=== PATIENT | male | born 1940 | race Caucasian/White ===

== ENCOUNTER → 2017-10-02 09:26 | Outpatient (POV) | payer MEDICARE, SELFPAY | PROVIDERS: PCP Internal Medicine; Visit Provider Thoracic Surgery (Cardiothoracic Vascular Surgery) | DX: Z00.00 Encounter for general adult medical examination without abnormal findings (principal) ==

== ENCOUNTER → 2017-11-17 08:54 | Outpatient (POV) | payer MEDICARE, SELFPAY | PROVIDERS: Visit Provider Internal Medicine | DX: Z00.00 Encounter for general adult medical examination without abnormal findings (principal) ==

== ENCOUNTER → 2018-01-13 13:16 | Outpatient (CLI) | payer MEDICARE, OTHER, SELFPAY ==
--- NOTE | 2018-01-13 13:27 | US_ITS ---
US thyroid HISTORY: ITS.REASON: THYROID NODULE ORDERING PHYSICIAN: Bret Whipple MD PATIENT AGE: 78 years COMPARISON: 07/10/2017 FINDINGS: The right lobe is 3.7 x 1.9 x 1.4 cm. There is heterogeneous echogenicity with decreased echogenicity along the anterior aspect of the right lobe which represent a small nodule at 1 cm probably unchanged. The left lobe measures 3.2 x 1.5 x 2 cm the upper pole there is a 1.3 x 1 cm isoechoic nodule. Probably unchanged given difference in scanning technique. IMPRESSION: Bilateral thyroid nodules probably unchanged
== END ==
PROVIDERS: PCP Internal Medicine; Visit Provider Otolaryngology
DX: E04.1 Nontoxic single thyroid nodule (principal)
CPT/HCPCS: 76536

== ENCOUNTER → 2018-02-16 10:15 | Outpatient (POV) | payer MEDICARE, SELFPAY | PROVIDERS: Family Provider Internal Medicine; PCP Internal Medicine; Visit Provider Internal Medicine | DX: Z00.00 Encounter for general adult medical examination without abnormal findings (principal) ==

== ENCOUNTER → 2018-12-13 11:53 | Outpatient (POV) | payer MEDICARE, SELFPAY | PROVIDERS: Visit Provider Internal Medicine | DX: Z00.00 Encounter for general adult medical examination without abnormal findings (principal) ==

== ENCOUNTER → 2019-06-14 11:11 | Outpatient (POV) | payer MEDICARE, SELFPAY ==
[2019-06-14 13:38] LABS: Basophils # 0.1 K/mm3 (0-0.2); Basophils % 0.4 % (0.1-2.0); Eosinophils # 0.2 K/mm3 (0.0-0.4); Hematocrit 46.5 % (42.0-52.0); Hemoglobin 14.4 g/dL (14.1-18.0); Lymphocytes # 5.6 K/mm3 (0.7-4.5); Lymphocytes % 36.8 % (10-50); Mean Corpuscular HGB Conc 30.9 g/dL (31.8-35.4); Mean Corpuscular Hemoglobin 33.3 pg (27.0-31.2); Mean Corpuscular Volume 107.8 fl (80-94); Mean Platelet Volume 7.4 fl (7.4-10.4); Monocytes # 1.2 K/mm3 (0.1-1.0); Monocytes % 7.8 % (1.7-9.3); Neutrophils # 8.1 K/mm3 (1.8-7.8); Neutrophils % 53.9 % (37.0-80.0); Platelet Count 317 K/mm3 (142-424); Red Blood Count 4.32 M/mm3 (4.60-6.20); White Blood Count 15.1 K/mm3 (4.8-10.8)
[2019-06-14 13:50] LABS: MANUAL DIFFERENTIAL MANUAL DIFFERENTIAL (MANUAL DIFF)
[2019-06-14 14:04] LABS: Alanine Aminotransferase 25 U/L (12-78); Albumin Level 3.4 gm/dL (3.4-5.0); Albumin/Globulin Ratio 1.4 (1.1-1.8); Alkaline Phosphatase 83 U/L (46-116); Anion Gap 9.9 mEq/L (5-15); Aspartate Amino Transferase 11 U/L (15-37); Bilirubin,Total 0.7 mg/dL (0.2-1.0); Blood Urea Nitrogen 11 mg/dL (7-18); Calcium 8.4 mg/dL (8.5-10.1); Carbon Dioxide 32 mmol/L (21.0-32.0); Chloride 99 mmol/L (98-107); Creatinine,Serum 0.99 mg/dL (0.70-1.30); Estimated Glomerular Filt Rate 73 ml/min (>60); GFR (African American) 88 ML/MIN (>60); Globulin 2.5 gm/dl (1.3-3.2); Glucose 75 mg/dL (74-106); Potassium 3.9 mmoL/L (3.5-5.1); Sodium 137 mmol/L (136-145); Total Protein,Serum 5.9 gm/dL (6.4-8.2)
[2019-06-14 15:08] LABS: Lymphocytes % 35 % (10-50); Monocytes % 4 % (2-9); Neutrophils % 60 % (42-76); Platelet Estimate Normal; RBC Morphology Normal; Total Cells Counted 100
[2019-06-18 04:59] LABS: Immunoglobulin E, Total 25 IU/mL (6-495)
== END ==
PROVIDERS: Visit Provider Internal Medicine
DX: J44.9 Chronic obstructive pulmonary disease, unspecified (principal)
CPT/HCPCS: 36415; 80053; 82785; 85007; 85025

== ENCOUNTER → 2019-07-20 14:54 | Outpatient (CLI) | payer MEDICARE, SELFPAY ==
--- NOTE | 2019-07-20 14:56 | MR_ITS ---
PROCEDURE: MR CERVICAL SPINE WO CON CLINICAL INDICATION: NECK PAIN Neck pain with limited range of motion COMPARISON: [facility] CT CHEST W/O CONTRAST from 07/24/2017 TECHNIQUE: Standard multiplanar multiecho sequences are performed without contrast. 3-D MIP and myelographic images are also rendered and reviewed FINDINGS: Normal alignment. Unremarkable craniocervical junction. C2-C3: Mild right-sided foraminal narrowing from uncovertebral hypertrophy. C3-C4: Moderate bilateral foraminal narrowing from uncovertebral hypertrophy with mild degenerative disc disease and 2 mm anterolisthesis of C3. C4-C5: Degenerate disc disease with uncovertebral hypertrophy with mild bilateral foraminal narrowing C5-C6: Degenerate disc disease with mild bulging disc and mild right-sided foraminal narrowing. 2-3 mm retrolisthesis of C5. C6-C7: Minimal anterolisthesis of C6 of 2-3 mm. Bony hypertrophy is present in the right facet region anteriorly. Facet ligamentum hypertrophy noted with bilateral lateral recess narrowing. C6-C7: Degenerate disc disease with mild bulging disc with 3 mm anterolisthesis of C7. Small left paracentral disc protrusion suspected at T2-T3 only imaged in the sagittal plane. No canal stenosis or disc herniation evident. IMPRESSION: Multilevel cervical spondylosis as detailed above. Please see above for detailed description at each level. No canal stenosis or extruded herniated disc Small left paracentral disc protrusion T2-T3 only imaged in the sagittal plane Dictated by: Jovanny Fischer MD 07/22/2019 11:42 Electronically signed by Jovanny Fischer MD in [place] 07/22/2019 11:42
== END ==
PROVIDERS: PCP Internal Medicine; Visit Provider Internal Medicine
DX: M54.2 Cervicalgia (principal)
CPT/HCPCS: 72141; 76376

== ENCOUNTER → 2020-03-14 13:44 | Outpatient (CLI) | payer MEDICARE, SELFPAY ==
--- NOTE | 2020-03-14 13:57 | MR_ITS ---
PROCEDURE: MR LUMBAR SPINE WO CON CLINICAL INDICATION: LUMBAR BACK PAIN LBP. Bilateral leg weakness, pain, numbness, and tingling. X6-8months. No trauma. Prior MRI 16 COMPARISON: [facility]/O MRI-L-SPINE W/O from 02/14/2016 MR CERVICAL SPINE WO CON from 07/20/2019 TECHNIQUE: Standard multiplanar multiecho sequences are performed without contrast. 3-D MIP and myelographic images are also rendered and reviewed FINDINGS: There is normal alignment. The spinal cord ends at the T12 level. L1-L2, and L2-L3 have an unremarkable appearance. L3-L4: There is mild facet hypertrophic changes causing mild bilateral lateral recess and foraminal narrowing which is slightly greater on the left and has slightly increased on the left compared to the previous exam. L4-5: There is 7 mm anterolisthesis of L4 with bulging disc along with facet and ligamentum hypertrophy. The facet and ligamentum hypertrophy is present bilaterally but is greater on the right compared to the left with severe right lateral recess narrowing. Left lateral recess narrowing is also noted. The anterolisthesis of L4 is slightly greater than when compared to the previous exam. The other findings are similar when compared to the previous exam. There is compression upon the right aspect of the thecal sac from the asymmetric facet and ligamentum hypertrophy. L5-S1: Bulging disc with bilateral facet ligamentum hypertrophy. This is greater on the left compared to the right resulting in left lateral recess and moderate to severe left-sided foraminal narrowing. This is not significantly changed. No extruded herniated disc evident. There is some transverse narrowing of the canal at L4-5 due to the facet hypertrophic change. IMPRESSION: Multilevel lumbar spondylosis as described above with bulging disc, facet ligamentum hypertrophy, lateral recess and foraminal narrowing. Please see above for detailed description at each level. No extruded herniated disc. Dictated by: Jovanny Fischer MD 03/15/2020 12:54 Electronically signed by Jovnany Fischer MD in [place] 03/15/2020 12:54
== END ==
PROVIDERS: PCP Internal Medicine; Visit Provider Internal Medicine
DX: M54.5 Low back pain (principal)
CPT/HCPCS: 72148; 76376

== ENCOUNTER → 2020-03-22 09:22 | Outpatient (POV) | payer MEDICARE, SELFPAY ==
[2020-03-22 09:44] VITALS: BP 132/72; PULSE 78; RESP 18; TEMP 36.4; O2SAT 98; BMI 33.6
--- NOTE | 2020-03-22 10:03 | HMH.PMCON ---
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 Current visit: Yes Status: Chronic Category: Medical Code(s): M47.816 - Spondylosis without myelopathy or radiculopathy, lumbar region (2) Lumbar radiculopathy Current visit: Yes Status: Chronic Category: Medical Code(s): M54.16 - Radiculopathy, lumbar region (3) Facet hypertrophy Current visit: Yes Status: Chronic Category: Medical Code(s): M47.819 - Spondylosis without myelopathy or radiculopathy, site unspecified (4) Sacroiliitis Current visit: Yes Status: Chronic Category: Medical Code(s): M46.1 - Sacroiliitis, not elsewhere classified - Assessment and plan all Dx Assessment and Plan for all problems:: We we will plan for bilateral SI joint injections. Patient has undergone these injections in the past and has gotten relief. If the patient does not get full relief with the injections, we will proceed with a lumbar epidural steroid injection at L4-L5. Patient does have recent imaging. Plan to see him back after the injection in the clinic to reassess his symptoms. The patient and I specifically discussed risk factors for COVID19. These risks include, but are not limited to age greater than 60, heart or lung disease, diabetes, immunosuppression, and travel. We also discussed NSAIDs may worsen COVID19 infection or symptoms. Patient should not use NSAIDs to treat COVID19 signs or symptoms. Patient was also informed that any type of corticosteroid of any form (oral or injection) will decrease the patient's immune system response and may increase the likelihood of COVID19 infection [address] symptoms[address] Arias has reviewed this note and agrees with this plan of care. This note was dictated using voice recognition software and make contain errors or omissions. HPI - Data of Consult Patient: new to practice Consult date: 03/22/20 Requesting Physician: Narda Gill APRN Primary Care Provider: Venkata Baldwin - Consult Narrative Reason for consult: Low back pain, bilateral hip pain History of present illness: Mr. Antoine is a 80 year old male who presents today for consultation for low back pain with bilateral hip pain. Patient says that he has had this pain intermittently for many years. He was a patient in the clinic approximately 3 years ago. At that time, the patient did undergo lumbar epidural steroid injection as well as bilateral SI injections and hip injections. Patient says that he did get relief following the injections. He is here today for recurrence of pain to his low back and bilateral hips. Patient does rate his pain at 4 out of 10 today. He has tried therapy in the past. He does continue to do a modified home stretching program. Patient says that his pain is worse when he is sitting for prolonged period and upon standing. He says that the pain radiates from side to side. He says that actions have seemed to be the only thing that has given him long-term relief. CC: Narda Gill APRN [facility] History I have reviewed the patient's past medical history: Yes Medical History: Reports:: Chronic Obstructive Pulmonary Disease (COPD), Hypertension Denies:: Cancer, Diabetes Mellitus Type 1, Diabetes Mellitus Type 2, MRSA *Have you ever received a pneumonia vaccine?: Yes *Have you received a flu vaccine this season?: Yes Other Medical History: Reports: Arthritis, Hypothyroidism Laterality Cases: Right: Arthroscopy Knee, Bilateral: Other Other Surgeries: Yes: Cholecystectomy, Colonoscopy, Coronary Stent, EGD Amputation: No Fractures: No - *Social History Smoking Status: Never smoker Alcohol Intake: never Substance Use Type: denies use *Occupational Status:: other Housing: house Household Members: spouse *Travel in the last 8 weeks: None Family Hx:: Unable to obtain Review of Systems - Review of Systems Review of Systems General: No recent weight changes, no fever, no sleep disturbances Respirator
== END ==
PROVIDERS: PCP Internal Medicine; Visit Provider Clinical Nurse Specialist Family Health
DX: M47.896 Other spondylosis, lumbar region (principal); M46.1 Sacroiliitis, not elsewhere classified
CPT/HCPCS: 99202

== ENCOUNTER 2020-04-02 13:39 | Day surgery (SDC) | payer MEDICARE, SELFPAY ==
[2020-04-02 13:52] VITALS: BP 151/71; PULSE 64; RESP 20; TEMP 36.8; O2SAT 98; BMI 29.2
[2020-04-02 14:15] VITALS: BP 142/78; BP 148/88; PULSE 79; RESP 18; TEMP 36.8; O2SAT 98
--- NOTE | 2020-04-02 14:26 | HMH.PMPROC ---
- Procedure Date: 04/02/20 Time: 14:26 Anesthesiologist:: Narda Gill APRN Complications:: None Pre-procedure Diagnosis:: Bilateral sacroiliitis Post-procedure Diagnosis:: Same Indications for Procedure:: Patient is an 80-year-old white male who presents today for bilateral SI joint injections. He does have chronic sacroiliitis and has gotten relief from the injections up to 2 to 3 months in the past. Patient is having low back pain with radiation into his bilateral buttock and hips. He rates his pain a 7 out of 10 today. He has notable tenderness over his SI joints bilaterally. He also has a positive compression test, distraction test, and [place]'s test. We will perform lateral SI joint injections today to see if he gets relief. Physical exam General: Alert and oriented x3, no acute distress, pleasant and cooperative, [on room air] Lungs: Respirations even and unlabored, symmetrical chest expansion Eyes: PERRL Musculoskeletal: Flexion and extension of bar spine somewhat guarded secondary to pain, deep tendon reflexes normal, strength in upper and lower extremities [5/5], [abnormal gait noted] positive compression test, positive distraction test, positive [place]'s test Neurological: Speech clear, casting director equal, no gross sensory deficit Procedure Details:: Description of procedure: Informed consent was obtained and the risks and benefits of the procedure were explained to the patient. The patient was taken to the procedure room on the right and noninvasive monitors were placed including a noninvasive blood pressure cuff and pulse oximeter. Patient was placed prone on the procedure table. The lower back was cleansed using chlorhexidine as a cleansing solution. C-arm fluoroscopy was used to view the right sacroiliac joint. The skin and subcutaneous tissues were anesthetized Using lidocaine 1.5% and a 25-gauge needle. After this, a 22-gauge spinal needle was inserted using fluoroscopic guidance into the inferior aspect of the right sacroiliac joint. Omnipaque dye was injected and good spread was seen throughout the joint. After this, approximately mL of bupivacaine 0.25% and Depo-Medrol 0 40 mg was incrementally injected into the right sacroiliac joint. We then moved to the left sacroiliac joint. The skin and subcutaneous tissues were anesthetized using lidocaine 1.5% and a 25-gauge needle. After this a 22-gauge spinal needle was inserted under fluoroscopic guidance into the inferior aspect of the left sacroiliac joint. After this approximately 5 mL of bupivacaine 0.25% and Depo-Medrol 40 mg was incrementally injected into the left sacroiliac joint. The patient tolerated the procedure well without complications. The patient was observed in the pain clinic for period of time and was then discharged home neurologically intact. Plan and Disposition:: We will see the patient back in the clinic in 2 weeks to reassess his symptoms. He has been instructed to contact the clinic if he has any concerns before his next appointment. The patient and I specifically discussed risk factors for COVID19. These risks include, but are not limited to age greater than 60, heart or lung disease, diabetes, immunosuppression, and travel. We also discussed NSAIDs may worsen COVID19 infection or symptoms. Patient should not use NSAIDs to treat COVID19 signs or symptoms. Patient was also informed that any type of corticosteroid of any form (oral or injection) will decrease the patient's immune system response and may increase the likelihood of COVID19 infection [address] symptoms[address] Arias has reviewed this note and agrees with this plan of care. This note was dictated using voice recognition software and make contain errors or omissions.
[2020-04-02 14:40] VITALS: BP 141/64; PULSE 68; RESP 20; O2SAT 98
== END 2020-04-02 14:41 | disposition home or self-care (01) ==
LOC: SC.PAINP 13:42
PROVIDERS: PCP Internal Medicine; Visit Provider Clinical Nurse Specialist Family Health
DX: M46.1 Sacroiliitis, not elsewhere classified (principal); J44.9 Chronic obstructive pulmonary disease, unspecified; Z95.1 Presence of aortocoronary bypass graft; Z90.49 Acquired absence of other specified parts of digestive tract; M47.896 Other spondylosis, lumbar region; M54.16 Radiculopathy, lumbar region; Z79.899 Other long term (current) drug therapy
CPT/HCPCS: 27096; G0260; J1030

== ENCOUNTER → 2020-04-23 09:40 | Outpatient (POV) | payer MEDICARE, SELFPAY ==
[2020-04-23 10:29] VITALS: BP 132/88; PULSE 74; RESP 18; O2SAT 99; BMI 29.5
--- NOTE | 2020-04-23 10:43 | HMH.PAINSOAP ---
[facility] Pain Management SOAP Note Subjective:: Pleasant 80-year-old white male who presents today for follow-up after bilateral SI joint injections. Patient is feeling much better in regard to his bilateral SI joint pain but he is having worsening pain in his thoracic spine radiating into his sternum at times. He has no rash. The pain is at the T4-T5 dermatome. Patient and I discussed epidural injections in this area. He like to proceed. He is not on any anticoagulation therapy. He rates his pain today 2 out of 10. He is recently been taken off of his methotrexate. Patient has had good relief with injections in the past getting up to 80% relief for several months. ROS General: no recent weight change, no fever, no sleep disturbances Respiratory: no cough, no shortness of air, no recurring pulmonary infections Cardiovascular/Peripheral Vascular: No chest pain, No palpitations, no edema, no shortness of breath. Gastrointestinal: no new onset incontinence, normal bowel movements reported Genitourinary: no new onset incontinence Musculoskeletal: Thoracic back pain Psychiatric: normal mood/ affect Neurological: [denies new onset weakness in extremities], [denies new onset balance issues] Objective:: Physical Exam General: Alert and oriented x3, no acute distress, pleasant and cooperative, [on room air] Lungs: Resps E/U, Symmetrical chest expansion, Eyes: PERRL Musculoskeletal: Flexion and extension of thoracic spine somewhat guarded secondary to pain, deep tendon reflexes normal, strength in upper and lower extremities [5/5], antalgic gait noted Neurological: speech clear, dairy laboratory technician 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 Given the efficacy of injections in the past I do believe it would benefit.. We will follow-up with him after this reassess his symptoms at that time he has been instructed to call the office if he has any issues prior to his next appointment. Dr. Arias has reviewed this note and agrees with this plan of care. This note was dictated using voice recognition software and may contain errors or omissions [facility] History I have reviewed the patient's past medical history: Yes Medical History: Reports:: Chronic Obstructive Pulmonary Disease (COPD), Hypertension Denies:: Cancer, Diabetes Mellitus Type 1, Diabetes Mellitus Type 2, MRSA, Seizures *Have you ever received a pneumonia vaccine?: Yes *Have you received a flu vaccine this season?: Yes Other Medical History: Reports: Arthritis, Hypothyroidism Laterality Cases: Right: Arthroscopy Knee, Bilateral: Other Other Surgeries: Yes: Cholecystectomy, Colonoscopy, Coronary Stent, EGD Amputation: No Fractures: No - *Social History Smoking Status: Never smoker Alcohol Intake: never Substance Use Type: denies use *Occupational Status:: other Housing: house Household Members: spouse *Travel in the last 8 weeks: None Family Hx:: Unable to obtain
== END ==
PROVIDERS: PCP Internal Medicine; Visit Provider Clinical Nurse Specialist Family Health
DX: M51.14 Intervertebral disc disorders with radiculopathy, thoracic region (principal)
CPT/HCPCS: 99212

== ENCOUNTER 2020-05-04 13:54 | Day surgery (SDC) | payer MEDICARE, SELFPAY ==
[2020-05-04 14:30] VITALS: BP 156/76; PULSE 71; RESP 18; TEMP 36.5; O2SAT 96; BMI 29.8
[2020-05-04 14:54] VITALS: BP 167/81; PULSE 75; RESP 18
[2020-05-04 14:55] VITALS: BP 166/78; PULSE 74; RESP 18; O2SAT 98
--- NOTE | 2020-05-04 14:58 | HMH.PMPROC ---
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 He does have pain radiating to the sternum. We will do a thoracic epidural steroid injection 245 today to help with his pain symptoms. Procedure Details:: Thoracic epidural steroid injection under fluoroscopy Informed consent was obtained and the risk and benefits of the procedure was explained to the patient. Patient was taken to the procedure room. The back was prepped using ChloraPrep. C-arm fluoroscopy was used to view the thoracic spine. The skin and subtest tissues were anesthetized using lidocaine. I placed a 17-gauge Touhy epidural needle into the T4-T5 interspace. I advanced using [id number] to air and fluoroscopic guidance until the epidural space was reached. Confirmation of needle placement in the epidural space was with dye. After this we injected 1 mL lidocaine 1.5% and Depo-Medrol 80 mg. The patient tolerated the procedure well with no complication. Plan and Disposition:: We will follow-up with him in 2 weeks. Will reevaluate his symptoms at that time.
[2020-05-04 15:05] VITALS: BP 134/66; PULSE 73; RESP 20; O2SAT 96
== END 2020-05-04 15:06 | disposition home or self-care (01) ==
LOC: SC.PAINP 13:55
PROVIDERS: PCP Internal Medicine; Visit Provider Anesthesiology
DX: M51.14 Intervertebral disc disorders with radiculopathy, thoracic region (principal); E03.9 Hypothyroidism, unspecified; J44.9 Chronic obstructive pulmonary disease, unspecified; Z95.1 Presence of aortocoronary bypass graft; Z87.39 Personal history of other diseases of the musculoskeletal system and connective tissue; Z90.49 Acquired absence of other specified parts of digestive tract; Z79.82 Long term (current) use of aspirin; Z79.899 Other long term (current) drug therapy
CPT/HCPCS: 62321; J1040; Q9966

== ENCOUNTER → 2020-05-28 10:10 | Outpatient (POV) | payer MEDICARE, SELFPAY ==
[2020-05-28 10:48] VITALS: BP 132/78; PULSE 84; RESP 18; O2SAT 98; BMI 29.7
--- NOTE | 2020-05-28 11:09 | P.CONS_ITS ---
[facility] Pain Management SOAP Note Subjective:: Patient is a pleasant 80-year-old white male who we are treating for low back and thoracic pain. He is following up after thoracic a epidural steroid injection. Patient doing well in regards to that however he is having SI joint pain. Patient does have a positive Michael test SI joint compression test and Yuli's test bilaterally. He rates his pain a 6 out of 10. Patient and I discussed intrathecal therapy. This may be a good option for him in the future. Patient has had multiple injections. ROS General: no recent weight change, no fever, no sleep disturbances Respiratory: no cough, no shortness of air, no recurring pulmonary infections Cardiovascular/Peripheral Vascular: No chest pain, No palpitations, no edema, no shortness of breath. Gastrointestinal: no new onset incontinence, normal bowel movements reported Genitourinary: no new onset incontinence Musculoskeletal: Back pain, SI joint pain Psychiatric: normal mood/ affect, Neurological: [denies new onset weakness in extremities], [denies new onset balance issues] Objective:: Physical Exam General: Alert and oriented x3, no acute distress, pleasant and cooperative, [on room air] Lungs: Resps E/U, Symmetrical chest expansion, Eyes: PERRL Musculoskeletal: Flexion and extension of lumbar spine somewhat guarded secondary to pain, deep tendon reflexes normal, strength in upper and lower extremities [5/5], [abnormal gait noted] Neurological: speech clear, 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 Plan:: I did give the patient information on intrathecal pain pump. Patient will be set up for bilateral SI joint injections to give him some relief in the meantime. Patient's been instructed to call the office if he has any issues prior to his next appointment. Dr. Arias has reviewed this note and agrees with this plan of care. This note was dictated using voice recognition software and may contain errors or omissions [facility] History I have reviewed the patient's past medical history: Yes Medical History: Reports:: Chronic Obstructive Pulmonary Disease (COPD), Hypertension Denies:: Cancer, Diabetes Mellitus Type 1, Diabetes Mellitus Type 2, MRSA, Seizures *Have you ever received a pneumonia vaccine?: Yes *Have you received a flu vaccine this season?: Yes Other Medical History: Reports: Arthritis, Hypothyroidism Laterality Cases: Right: Arthroscopy Knee, Bilateral: Other Other Surgeries: Yes: Cholecystectomy, Colonoscopy, Coronary Stent, EGD Amputation: No Fractures: No - *Social History Smoking Status: Never smoker Alcohol Intake: never Substance Use Type: denies use *Occupational Status:: other Housing: house Household Members: spouse *Travel in the last 8 weeks: None Family Hx:: Unable to obtain
== END ==
PROVIDERS: PCP Internal Medicine; Visit Provider Clinical Nurse Specialist Family Health
DX: M51.16 Intervertebral disc disorders with radiculopathy, lumbar region (principal); M51.34 Other intervertebral disc degeneration, thoracic region; M46.1 Sacroiliitis, not elsewhere classified
CPT/HCPCS: 99212

== ENCOUNTER 2020-06-04 14:18 | Day surgery (SDC) | payer MEDICARE, SELFPAY ==
[2020-06-04 14:33] VITALS: BP 155/78; PULSE 68; RESP 18; TEMP 36.6; O2SAT 98; BMI 30.1
[2020-06-04 14:50] VITALS: BP 132/85; PULSE 85; RESP 18
[2020-06-04 14:51] VITALS: BP 132/85; PULSE 85; RESP 18; O2SAT 98
--- NOTE | 2020-06-04 14:54 | P.PCN_ITS ---
- Procedure Date: 06/04/20 Time: 14:54 Anesthesiologist:: Liliya Black APRN Complications:: None Pre-procedure Diagnosis:: Degenerative disc disease lumbar spine lumbar radiculopathy sacroiliitis and thoracic degenerative disc disease Post-procedure Diagnosis:: Same Indications for Procedure:: Pleasant 80-year-old white male who presents today for bilateral SI joint injections. Patient gets quite good relief with this. He has a positive Michael test SI joint compression test and Yuli's test bilaterally. He rates his pain a 6 out of 10. Patient gets 80% relief for several months after these injections. Physical Exam General: Alert and oriented x3, no acute distress, pleasant and cooperative, Lungs: Resps E/U, Symmetrical chest expansion, Eyes: PERRL Musculoskeletal: Flexion and extension of lumbar spine somewhat guarded secondary to pain, deep tendon reflexes normal, strength in upper and lower extremities [5/5], [abnormal gait noted] Neurological: speech clear, supervisor wrapping room equal, no gross sensory deficits His Procedure Details:: Informed consent was obtained and the risks and benefits of the procedure were explained to the patient. Patient was taken to the procedure room. Patient was placed prone on the procedure table. The left hip was prepped using ChloraPrep as a cleansing solution. The skin and subcutaneous tissues were anesthetized using lidocaine. Using fluoroscopic guidance I placed a 22-gauge spinal needle into the inferior aspect of the left SI joint. After this I injected 5 mL bupivacaine 0.25% and Depo-Medrol 40 mg into the left SI joint. Was then repeated on the right side. The patient tolerated the procedure well with no complication. Plan and Disposition:: We will set the patient up for a follow-up in the office in several weeks. Patient and I also have briefly discussed intrathecal therapy in the past. He does have quite a bit of low back pain. Patient's been instructed to call the office if he has any issues prior to his next appointment. Dr. Arias has reviewed this note and agrees with this plan of care. This note was dictated using voice recognition software and may contain errors or omissions
[2020-06-04 14:57] VITALS: BP 157/73; PULSE 67; RESP 18; O2SAT 98
== END 2020-06-04 14:58 | disposition home or self-care (01) ==
LOC: SC.PAINP 14:20
PROVIDERS: PCP Internal Medicine; Visit Provider Clinical Nurse Specialist Family Health
DX: M46.1 Sacroiliitis, not elsewhere classified (principal); M51.16 Intervertebral disc disorders with radiculopathy, lumbar region; M51.34 Other intervertebral disc degeneration, thoracic region; I25.10 Atherosclerotic heart disease of native coronary artery without angina pectoris; E78.5 Hyperlipidemia, unspecified; I65.29 Occlusion and stenosis of unspecified carotid artery; J44.9 Chronic obstructive pulmonary disease, unspecified; Z95.1 Presence of aortocoronary bypass graft; E07.9 Disorder of thyroid, unspecified; Z90.49 Acquired absence of other specified parts of digestive tract; Z79.82 Long term (current) use of aspirin; Z79.899 Other long term (current) drug therapy
CPT/HCPCS: 27096; G0260; J1040; Q9966

== ENCOUNTER → 2020-06-25 10:47 | Outpatient (POV) | payer MEDICARE, SELFPAY ==
[2020-06-25 11:14] VITALS: BP 132/85; PULSE 85; RESP 18; TEMP 36.8; O2SAT 98; BMI 30.1
--- NOTE | 2020-06-25 13:12 | HMH.PAINSOAP ---
[facility] Pain Management SOAP Note Subjective:: Patient is a very pleasant 80-year-old white male who presents today for follow-up. 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 Patient and I had a long discussion in regard to intrathecal therapy and neuro stimulation. Patient states that he would like to potentially move forward with a neurostimulator. He is following up today after an SI joint injection. Patient got good relief he rates his pain today a 4 out of 10. He has tried multiple injections including thoracic epidurals, lumbar epidurals, SI joint injections. Patient is tried and failed anti-inflammatories as well. Patient used to be on gabapentin 300 mg 1 p.o. 3 times daily he states that this was beneficial. We will start him back on this. [facility] #[id number] reviewed and appropriate. ROS General: no recent weight change, no fever, no sleep disturbances Respiratory: no cough, no shortness of air, no recurring pulmonary infections Cardiovascular/Peripheral Vascular: No chest pain, No palpitations, no edema, no shortness of breath. Gastrointestinal: no new onset incontinence, normal bowel movements reported Genitourinary: no new onset incontinence Musculoskeletal: Back pain, leg pain Psychiatric: normal mood/ affect Neurological: [denies new onset weakness in extremities], [denies new onset balance issues] Objective:: Physical Exam General: Alert and oriented x3, no acute distress, pleasant and cooperative, [on room air] Lungs: Resps E/U, Symmetrical chest expansion, Eyes: PERRL Musculoskeletal: Flexion and extension of lumbar spine somewhat guarded secondary to pain, deep tendon reflexes normal, strength in upper and lower extremities [5/5], [abnormal gait noted] Neurological: speech clear, irb compliance coordinator equal, no gross sensory deficits Assessment:: Degenerative disc disease thoracic spine with thoracic radiculopathy, degenerative disc disease lumbar spine with lumbar radiculopathy, sacroiliitis Plan:: Patient is going to think about potentially moving forward with a neurostimulator he is can call our office if he has any issues. Patient also will be started on gabapentin 300 mg 1 p.o. 3 times daily patient states he is taking this in the past with good relief. Dr. Arias has reviewed this note and agrees with this plan of care. This note was dictated using voice recognition software and may contain errors or omissions [facility] History I have reviewed the patient's past medical history: Yes Medical History: Reports:: Carotid Stenosis, Chronic Obstructive Pulmonary Disease (COPD), Coronary Artery Disease, Hyperlipidemia, Hypertension Denies:: Cancer, Diabetes Mellitus Type 1, Diabetes Mellitus Type 2, MRSA, Seizures *Have you ever received a pneumonia vaccine?: Yes *Have you received a flu vaccine this season?: Yes Other Medical History: Reports: Arthritis, Hypothyroidism, Thyroid Disease Laterality Cases: Right: Arthroscopy Knee, Bilateral: Other Other Surgeries: Yes: Cholecystectomy, Colonoscopy, Coronary Stent, EGD, Open Heart Surgery Amputation: No Fractures: No - *Social History Smoking Status: Never smoker Alcohol Intake: never Substance Use Type: denies use *Occupational Status:: other Housing: house Household Members: spouse *Travel in the last 8 weeks: None Family Hx:: Thyroid Disorder
== END ==
PROVIDERS: PCP Internal Medicine; Visit Provider Clinical Nurse Specialist Family Health
DX: M51.14 Intervertebral disc disorders with radiculopathy, thoracic region (principal); M51.16 Intervertebral disc disorders with radiculopathy, lumbar region; M46.1 Sacroiliitis, not elsewhere classified
CPT/HCPCS: 99212

== ENCOUNTER 2020-10-02 10:35 | Emergency (ER) | payer MEDICARE, SELFPAY ==
[2020-10-02] VITALS (9 sets, daily range): BP systolic 102–173; BP diastolic 54–89; PULSE 63–79; RESP 16–18; TEMP 36.6–36.7; O2SAT 93–98; BMI 30.7
--- NOTE | 2020-10-02 10:47 | ECG_ITS ---
APPROVED REPORT Exam: Resting ECG HR:73 bpm ECG Measurements Heart Rate 73 AXES NJ 160 P 0 QRSd 92 QRS 32 QT 380 T 47 QTc 418 Conclusion Normal sinus rhythm Normal ECG Electronically signed by : Sammy Clinton, 10/03/2020 05:56:49
--- NOTE | 2020-10-02 10:51 | HMH.EDGENADL ---
ED Disposition Clinical Impression: Vasovagal episode, Pyuria Disposition: Home, Self-Care Condition on Discharge: Good Additional Instructions: Cipro as prescribed. Follow-up with your primary care doctor in 2 days, check urine culture results at that time. Return to the emergency department if fainting or near fainting recurs. Prescriptions: Ciprofloxacin HCl [Ciprofloxacin 500mg Tab] 500 mg PO BID #20 tab Transmission Status: Pending to [facility] Referrals: Venkata Baldwin [Primary Care Provider] - - Critical Care Critical Care Time: No Attestation: On , the high probability of a clinically significant, sudden or life threatening deterioration of the following system(s) required my full and direct attention, intervention and personal management. The time I documented below is in addition to time spent performing reported procedures but includes the following listed in this critical care notation. Medical Decision Making - Link Inquiry Pt receiving controlled substance: No Vital Signs: 10/02/20 10:35 10/02/20 11:10 10/02/20 11:45 Temperature 98.0 F Temperature Source Oral Pulse Rate [Right Radial] 76 63 68 Respiratory Rate 18 Blood Pressure [Right Arm] 133/79 102/54 L 142/74 H Blood Pressure Mean [Right Arm] 97 70 96 Blood Pressure Source [Right Arm] Automatic Cuff Automatic Cuff Automatic Cuff Blood Pressure Position [Right Arm] Sitting Sitting Sitting 02 Sat by Pulse Oximetry 94 L 93 L 97 Oxygen Delivery Method Room Air Room Air Room Air 10/02/20 12:33 Temperature Temperature Source Pulse Rate [Right Radial] 69 Respiratory Rate Blood Pressure [Right Arm] Blood Pressure Mean [Right Arm] Blood Pressure Source [Right Arm] Automatic Cuff Blood Pressure Position [Right Arm] Sitting 02 Sat by Pulse Oximetry 95 Oxygen Delivery Method Room Air - Lab Data Lab results reviewed: Yes: I reviewed the patient's lab results. Lab Results 10/02/20 10:49: WBC 20.6 H*, RBC 5.25, Hgb 17.9, Hct 53.2 H, MCV 101.3 H, MCH 34.0 H, MCHC 33.6, RDW 13.3, Plt Count 371, MPV 8.0, Neut % (Auto) 37.1, Lymph % (Auto) 53.4 H, Nash % (Auto) 7.7, Eos % (Auto) 0.9, Baso % (Auto) 1.0, Neut # (Auto) 7.6, Lymph # (Auto) 11.0 H, Nash # (Auto) 1.6 H, Eos # (Auto) 0.2, Baso # (Auto) 0.2, Total Counted 100, Neutrophils % (Manual) 42, Lymphocytes % (Manual) 52 H, Monocytes % (Manual) 6, Platelet Estimate Normal, Macrocytosis 1+ 10/02/20 10:49: Sodium 136, Potassium 4.1, Chloride 96 L, Carbon Dioxide 35 H, Anion Gap 9.1, BUN 17, Creatinine 1.00, Estimated Creat Clear 80, Estimated GFR 72, Est GFR ( Amer) 87, Glucose 123 H, Calcium 9.2, Total Bilirubin 0.6, AST 29, ALT 28, Alkaline Phosphatase 77, Troponin I < 0.01, Total Protein 7.2, Albumin 4.2, Globulin 3.0, Albumin/Globulin Ratio 1.4 10/02/20 10:49: SARS-CoV-2 IgG Ab (Rapid) Positive A, SARS-CoV-2 IgM Ab (Rapid) Negative 10/02/20 10:49: Procalcitonin 0.090 10/02/20 12:25: Lactate 1.1 10/02/20 14:00: Troponin I < 0.01 10/02/20 14:51: Urine Color Yellow, Urine Appearance Clear, Urine pH 7.5, Ur Specific [place] 1.015, Urine Protein Trace, Urine Glucose (UA) Negative, Urine Ketones Negative, Urine Blood Negative, Urine Nitrate Negative, Urine Bilirubin Negative, Urine Urobilinogen 0.2, Ur Leukocyte Esterase Negative, Urine WBC 10-20, Hyaline Casts 10-20 Result diagrams: 10/02/20 10:49 10/02/20 10:49 Orders (Tests/Meds): ED MEDICATIONS Discontinued Medications Generic Name Dose Route Start Last Admin Trade Name Freq PRN Reason Stop Dose Admin Acetaminophen 650 mg 10/02/20 11:09 10/02/20 13:00 Acetaminophen 325mg Tab PO 10/02/20 11:10 650 mg ONCE ONE Administration Sodium Chloride 500 ml 10/02/20 11:00 10/02/20 11:11 Sodium Chloride 0.9% 1000ml Bag IV 10/02/20 11:01 500 ml BOLUS ONE Administration ORDERS Category Date Time Status Troponin I Q3H Lab 10/02/20 17:00 Ordered Blood Culture Stat Micro 10/02/20 12:32 Rece
--- NOTE | 2020-10-02 10:56 | XR_ITS ---
PROCEDURE: XR CHEST PORTABLE CLINICAL HISTORY: dizziness Weakness COMPARISON: CR CXR1 CHEST-PORTABLE from 12/19/2012 CR CXR CHEST(2 VIEWS-NOT PORTABLE) from 04/19/2013 CR CXR2 CHEST-AP VIEW ONLY from 11/15/[address] CHEST W/O CONTRAST from 07/24/2017 FINDINGS: Mild cardiomegaly without failure. There has been a prior CABG. There is silhouetting out of the left hemidiaphragm which is a chronic finding. There are low lung volumes. No lobar consolidation or collapse is evident. No acute bony abnormalities. IMPRESSION: No acute findings. Dictated by: Jovanny Fischer MD 10/02/2020 13:27 Jovanny Fischer MD in [place] 10/02/2020 13:27
--- NOTE | 2020-10-02 11:09 | CT_ITS ---
PROCEDURE: CT HEAD/BRAIN WO CON CLINICAL INDICATION: headache, near syncope COMPARISON: CT HDWO CT HEAD W/O CONTRAST from 04/19/2013 TECHNIQUE: Axial images obtained. All CT scans at the facility use one or more dose reduction, viz: automated exposure control, ma/kV adjustment per patient size (including targeted exams where dose is matched to indication, i.e. head), or iterative reconstruction technique. FINDINGS: No midline shift, mass effect, intracranial hemorrhage, hydrocephalus, or extra-axial fluid collection is evident. There is generalized atrophy with hypoattenuation of the periventricular white matter consistent with microangiopathic changes. The calvarium has an unremarkable appearance. No mastoid effusion. Minimal mucosal thickening of the ethmoid sinuses. IMPRESSION: No acute intracranial finding Dictated by: Jovanny Fischer MD 10/02/2020 12:06 Jovanny Fischer MD in [place] 10/02/2020 12:06
--- NOTE | 2020-10-02 11:09 | PC.NURSE ---
Pt complains of a headache at this time. aware. New orders.
[2020-10-02 11:16] LABS: Basophils # 0.2 K/mm3 (0-0.2); Eosinophils # 0.2 K/mm3 (0.0-0.4); Eosinophils % 0.9 % (0.1-12.0); Hematocrit 53.2 % (42.0-52.0); Hemoglobin 17.9 g/dL (14.1-18.0); Lymphocytes % 53.4 % (10-50); Mean Corpuscular HGB Conc 33.6 g/dL (31.8-35.4); Mean Corpuscular Volume 101.3 fl (80-94); Monocytes # 1.6 K/mm3 (0.1-1.0); Monocytes % 7.7 % (1.7-9.3); Neutrophils # 7.6 K/mm3 (1.8-7.8); Neutrophils % 37.1 % (37.0-80.0); Platelet Count 371 K/mm3 (142-424); Red Blood Count 5.25 M/mm3 (4.60-6.20); Red Cell Distribution Width 13.3 % (11.5-17.5); White Blood Count 20.6 K/mm3 (4.8-10.8)
[2020-10-02 11:17] LABS: Chloride 96 mmol/L (98-107); MANUAL DIFFERENTIAL MANUAL DIFFERENTIAL (MANUAL DIFF); Potassium 4.1 mmoL/L (3.5-5.1); Sodium 136 mmol/L (136-145)
[2020-10-02 11:20] LABS: Alanine Aminotransferase 28 U/L (12-78); Albumin Level 4.2 g/dl (3.5-5.0); Albumin/Globulin Ratio 1.4 (1.1-1.8); Alkaline Phosphatase 77 U/L (38-126); Anion Gap 9.1 mEq/L (5-15); Aspartate Amino Transferase 29 U/L (17-59); Bilirubin,Total 0.6 mg/dl (0.2-1.3); Blood Urea Nitrogen 17 mg/dl (9-20); Calcium 9.2 mg/dl (8.4-10.2); Carbon Dioxide 35 mmol/L (22.0-30.0); Creatinine Clearance Estimated 80 mL/min (50-200); Estimated Glomerular Filt Rate 72 ml/min (>60); GFR (African American) 87 ML/MIN (>60); Glucose 123 mg/dl (74-100); Total Protein,Serum 7.2 g/dl (6.3-8.2)
--- NOTE | 2020-10-02 11:26 | PC.NURSE ---
Pt to rad.
[2020-10-02 11:34] LABS: Troponin I < 0.01 ng/ml (0.00-0.034)
[2020-10-02 11:41] LABS: Lymphocytes % 52 % (10-50); Macrocytosis 1+; Monocytes % 6 % (2-9); Neutrophils % 42 % (42-76); Platelet Estimate Normal; Total Cells Counted 100
[2020-10-02 12:17] LABS: Coronavirus 19 IgG Antibody Positive (Negative); Coronavirus 19 IgM Antibody Negative (Negative)
[2020-10-02 12:58] LABS: Lactic Acid 1.1 mmol/L (0.7-2.1)
[2020-10-02 14:44] LABS: Troponin I < 0.01 ng/ml (0.00-0.034)
[2020-10-02 15:08] LABS: Microscopic, Urine URINE MICROSCOPIC (MICROSCOPIC)
[2020-10-02 15:11] LABS: Appearance,Urine CLEAR (Clear); Bilirubin,Urine Negative (Negative); Blood, Urine Negative (Negative); Color,Urine YELLOW (Yellow); Glucose,Urine (UA) Negative (Negative); Ketones,Urine Negative (Negative); Leukocyte Esterase,Urine Negative (Negative); Nitrate,Urine Negative (Negative); PH,Urine 7.5 (5.0-8.5); Protein,Urine TRACE (Negative); Specific Gravity, Urine 1.015 (1.005-1.030); Urobilinogen,Urine 0.2 EU/dl (0.2)
== END 2020-10-02 17:04 | disposition home or self-care (01) ==
PROVIDERS: Emergency Provider Emergency Medicine; PCP Internal Medicine
DX: R55 Syncope and collapse (principal); R82.81 Pyuria; Z01.84 Encounter for antibody response examination; J44.9 Chronic obstructive pulmonary disease, unspecified; I25.10 Atherosclerotic heart disease of native coronary artery without angina pectoris; I10 Essential (primary) hypertension; E78.5 Hyperlipidemia, unspecified; Z79.899 Other long term (current) drug therapy
CPT/HCPCS: 36415; 70450; 71045; 80053; 81001; 83605; 84145; 84484; 85007; 85025; 86328; 87040; 87086; 93005; 96365; 99284

== ENCOUNTER → 2021-01-08 08:07 | Outpatient (CLI) | payer MEDICARE, SELFPAY ==
--- NOTE | 2021-01-08 08:08 | FL_ITS ---
PROCEDURE: FL BARIUM SWALLOW CLINICAL INDICATION: dysphag Dysphagia COMPARISON: CT CT CERVICAL SPINE WO CON from 01/08/2021 FINDINGS: Fluoroscopy time: 51 seconds. Surgical clips are present in the right neck. Carotid artery calcifications noted. No annular constricting lesions, polypoid filling defects, or mucosal abnormalities are evident. There is fracture of the 2nd from top median sternotomy wire. Small diverticulum is noted in the mid esophageal region on the left. No hiatal hernia. No reflux demonstrated during the exam. IMPRESSION: Small mid esophageal diverticulum otherwise negative air-contrast barium enema. Dictated by: Jovanny Fischer MD 01/08/2021 15:46 Jovanny Fischer MD in [facility] 01/08/2021 15:46
--- NOTE | 2021-01-08 08:08 | CT_ITS ---
PROCEDURE: CT CERVICAL SPINE WO CON CLINICAL INDICATION: spinal spur Spinal spur causing dysphagia COMPARISON: MR MR CERVICAL SPINE WO CON from 07/20/2019 CR,RF FL BARIUM SWALLOW from 01/08/2021 TECHNIQUE: Axial images obtained with sagittal and coronal reformats. All CT scans at the facility use one or more dose reduction, viz: automated exposure control, ma/kV adjustment per patient size (including targeted exams where dose is matched to indication, i.e. head), or iterative reconstruction technique. Axial spiral CT scanning performed of the cervical spine beginning at the base of the skull and continuing to the upper T-spine. 3-D multiplanar reconstruction with 3-D manipulation of volumetric data set in image rendering was completed by the radiologist and/or technologist with the supervision of the radiologist on independent workstation. FINDINGS: Multilevel cervical spondylosis is present. No acute fracture or dislocation. No lytic or blastic change. At the craniocervical junction there is bony hypertrophy along the superior aspect of the anterior arch of C1 which covers the superior aspect of the odontoid. C2-C3: Right-sided foraminal narrowing from facet and uncovertebral hypertrophy. C3-C4: Nearly 4 mm anterolisthesis of C3 with facet and uncovertebral hypertrophy on both sides with bilateral foraminal narrowing severe on the right and moderate to severe on the left. C4-C5: Degenerative disc disease with mild bilateral foraminal narrowing slightly greater on the right. There is a small anterior osteophyte at C4-C5. This however is not displacing or impinging upon the esophagus C5-C6: Degenerative disc disease with endplate hypertrophic change with mild bilateral foraminal narrowing. Small anterior osteophyte C6-C7: 3 mm anterolisthesis of C6. There is moderate facet hypertrophic change with bilateral foraminal narrowing greater on the right. An osteophyte extends from the right pedicle of C6 anterior to the superior facet of C7 just along the anterior right lateral aspect of the lateral foraminal region and may be causing some impingement upon the exiting nerve roots at that level. There is a mild right lateral recess narrowing. Small anterior osteophytes C7-T1: Degenerative disc disease with facet hypertrophic change. There is a mildly prominent osteophyte projecting off the anterior left aspect of the T1 vertebral body which is abutting the posterior and left lateral aspect of the esophagus. IMPRESSION: Multilevel cervical spondylosis as detailed above. Please see above for detailed description at each level. There are small anterior osteophytes in the cervical spine. Only 1 of these osteophytes is abutting the esophagus posteriorly and is on the left at T1. Dictated by: Jovanny Fischer MD 01/09/2021 09:04 Jovanny Fischer MD in [facility] 01/09/2021 09:04
== END ==
PROVIDERS: PCP Internal Medicine; Visit Provider Otolaryngology
DX: R13.10 Dysphagia, unspecified (principal)
CPT/HCPCS: 72125; 74220

== ENCOUNTER → 2021-04-02 11:12 | Outpatient (CLI) | payer MEDICARE, SELFPAY ==
--- NOTE | 2021-04-02 11:20 | XR_ITS ---
PROCEDURE: XR CHEST 2V CLINICAL HISTORY: LEFT ANTERIOR CHEST PAIN COMPARISON: CR CXR CHEST(2 VIEWS-NOT PORTABLE) from 04/19/2013 CR CXR2 CHEST-AP VIEW ONLY from 11/15/[address] CHEST W/O CONTRAST from 07/24/2017 CR XR CHEST PORTABLE from 10/02/2020 FINDINGS: Prior median sternotomy with CABG. Normal heart size. Mild atelectatic changes are present in the left lung base. The remaining lungs are clear. There are degenerative changes in the thoracic spine with ankylosis IMPRESSION: Minimal left basilar atelectasis Dictated by: Jovanny Fischer MD 04/02/2021 12:31 Jovanny Fischer MD in [facility] 04/02/2021 12:31
--- NOTE | 2021-04-02 11:23 | XR_ITS ---
PROCEDURE: XR THORACIC SPINE 3V CLINICAL INDICATION: PAIN POST COUGHING COMPARISON: CT CHWO CT CHEST W/O CONTRAST from 07/24/2017 CR XR CHEST 2V from 04/02/2021 FINDINGS: There is mild thoracic scoliosis convex right. There is diffuse spondylosis of the thoracic spine with degenerative disc disease and anterior osteophytes with DISH of the mid and lower thoracic spine. There is mild thoracic kyphosis. There is minimal wedging of the superior endplate of T11 which did not appear to be present on the previous CT scan of 07/24/2017. There is cortical irregularity with some minimal wedge contour T7 and T8 which appears old. There is mild anterolisthesis T6 on T7 of 2 mm and T7 on T1 5 mm. There has been a prior median sternotomy with fracture of the 2nd from top median sternotomy wire. IMPRESSION: Diffuse thoracic spondylosis with DISH. There is mild wedging of the superior endplate of T11 which has developed since 07/24/2017. No obvious retropulsion. Dictated by: Jovanny Fischer MD 04/02/2021 12:41 Jovanny Fischer MD in [place] 04/02/2021 12:41
== END ==
PROVIDERS: PCP Internal Medicine; Visit Provider Internal Medicine
DX: R07.89 Other chest pain (principal); M54.6 Pain in thoracic spine; R05 Cough
CPT/HCPCS: 71046; 72072

== ENCOUNTER → 2021-04-08 14:59 | Outpatient (CLI) | payer MEDICARE, SELFPAY ==
[2021-04-08 16:36] LABS: Blood Urea Nitrogen 11 mg/dl (9-20); Estimated Glomerular Filt Rate 72 ml/min (>60); GFR (African American) 87 ML/MIN (>60)
== END ==
PROVIDERS: Visit Provider Internal Medicine
DX: M54.6 Pain in thoracic spine (principal)
CPT/HCPCS: 36415; 82565; 84520

== ENCOUNTER → 2021-04-09 10:15 | Outpatient (CLI) | payer MEDICARE, SELFPAY ==
--- NOTE | 2021-04-09 10:19 | CT_ITS ---
PROCEDURE: CT THORACIC SPINE WO/W CON CLINICAL HISTORY: THORACIC BACK PAIN Back pain radiating under rt scapula x3wks COMPARISON: CT [facility] CT CHEST W/O CONTRAST from 07/24/[address] CERVICAL SPINE WO CON from 01/08/2021 CR XR THORACIC SPINE 3V from 04/02/2021 TECHNIQUE: Axial images obtained with sagittal and coronal reformats. All CT scans at the facility use one or more dose reduction, viz: automated exposure control, ma/kV adjustment per patient size (including targeted exams where dose is matched to indication, i.e. head), or iterative reconstruction technique. FINDINGS: There is normal alignment. There is multilevel degenerative disc disease with anterior osteophytes along with facet ligamentum hypertrophic changes. DISH is present from T5-L1. No acute fracture or dislocation is evident. No paraspinal mass or hematoma. At T6-T7 there is small posterior osteophyte versus PLL calcification with narrowing of the canal at that region. Prominent costo vertebral hypertrophy noted at T5-T6 bilaterally and on the right at T6-T7. Previous radiograph suggested mild wedge compression changes of T3. There is very minimal wedging of the T3 vertebral body anteriorly. No cortical disruption however is apparent and there is no retropulsion. This does not appear to be significantly changed from prior chest CT of 07/24/2017. Minimal chronic wedge contour noted at T7, T8, and T9. There are atelectatic changes in the right lower lobe. The left hemidiaphragm is elevated. There is mild thoracic scoliosis convex right. IMPRESSION: Multilevel thoracic spondylosis with DISH. No definite acute finding. Mild thoracic scoliosis convex right. Small posterior central osteophyte at T6-T7 with narrowing of the canal at that level. Dictated by: Jovanny Fischer MD 04/10/2021 08:03 Jovanny Fischer MD in [facility] 04/10/2021 08:03
== END ==
PROVIDERS: PCP Internal Medicine; Visit Provider Internal Medicine
DX: M54.6 Pain in thoracic spine (principal)
CPT/HCPCS: 72130; Q9967

== ENCOUNTER 2021-06-19 03:23 | Emergency (ER) | payer MEDICARE, SELFPAY ==
[2021-06-19 03:24] VITALS: BP 112/50; PULSE 59; RESP 18; TEMP 36.4; O2SAT 96; BMI 30.4
[2021-06-19 03:46] VITALS: BMI 30.4
--- NOTE | 2021-06-19 03:47 | CT_ITS ---
PROCEDURE INFORMATION: Exam: CT Abdomen And Pelvis Without Contrast Exam date and time: 06/19/2021 3:47 AM Age: 81 years old Clinical indication: Abdominal pain; Flank; Right; Patient HX: RT sided pain; Additional info: Rule out kidney stone TECHNIQUE: Imaging protocol: Computed tomography of the abdomen and pelvis without contrast. Radiation optimization: All CT scans at this facility use at least one of these dose optimization techniques: automated exposure control; mA and/or kV adjustment per patient size (includes targeted exams where dose is matched to clinical indication); or iterative reconstruction. COMPARISON: CTAAP CTA ABD/PELVIS 08/24/2017 10:31 AM FINDINGS: Heart: Changes of prior CABG. Calcifications of the aortic and mitral valves. Diaphragm: Elevation of the left hemidiaphragm. Liver: Normal. No mass. Gallbladder and bile ducts: Cholecystectomy. Pancreas: Normal. No ductal dilation. Spleen: Calcified splenic granulomas. Adrenal glands: Normal. No mass. Kidneys and ureters: There is an intermediate density 1.5 cm left upper pole renal lesion. Stomach and bowel: Colonic diverticulosis without evidence of diverticulitis. No bowel obstruction. Appendix: No evidence of appendicitis. Intraperitoneal space: Unremarkable. No free air. No significant fluid collection. Vasculature: Moderate burden of atherosclerotic plaque within the abdominal aorta and branch vessels. Fusiform infrarenal abdominal aortic aneurysm measures 3.9 x 3.9 cm, previously 3.8 x 3.7 cm on 08/24/2017. Lymph nodes: Calcified subcarinal lymph nodes. Urinary bladder: Unremarkable as visualized. Reproductive: Unremarkable as visualized. Bones/joints: Multilevel degenerative disc disease in the thoracolumbar spine. No acute fractures. Soft tissues: Moderate right hydroureteronephrosis secondary to infiltrative soft tissue in the bladder wall involving the right ureterovesical junction and potentially the distal right ureter. IMPRESSION: 1. Moderate right hydroureteronephrosis secondary to infiltrative soft tissue in the bladder wall involving the right ureterovesical junction and potentially the distal right ureter, highly suspicious for urothelial carcinoma. Recommend Urology referral. 2. Intermediate density 1.5 cm left upper pole renal lesion, which could be further characterized with MRI. 3. Similar appearance a fusiform infrarenal abdominal aortic aneurysm.
--- NOTE | 2021-06-19 04:09 | HMH.EDNVD ---
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 Qualifiers: Spinal osteoarthritis complication: unspecified spinal osteoarthritis Qualified Code(s): M47.816 - Spondylosis without myelopathy or radiculopathy, lumbar region Hydronephrosis Qualifiers: Hydronephrosis type: unspecified Qualified Code(s): N13.30 - Unspecified hydronephrosis Disposition: Home, Self-Care Condition on Discharge: Good Instructions: DI for Flank Pain Additional Instructions: fluids and use meds and see pcp and urology manny Prescriptions: levoFLOXacin [Levaquin 500mg tab] 500 mg PO DAILY #7 tab Transmission Status: Pending to [facility] Referrals: Venkata Baldwin [Primary Care Provider] - Francisco Javier Poole MD [Staff Physician] - - Critical Care Critical Care Time: No Attestation: On 06/19/21, the high probability of a clinically significant, sudden or life threatening deterioration of the following system(s) required my full and direct attention, intervention and personal management. The time I documented below is in addition to time spent performing reported procedures but includes the following listed in this critical care notation. Medical Decision Making - Medical Records Medical records reviewed: Yes: I reviewed the patient's medical records. - Link Inquiry Pt receiving controlled substance: No Vital Signs: 06/19/21 03:24 Temperature 97.6 F Temperature Source Oral Pulse Rate [Left] 59 L Respiratory Rate 18 Blood Pressure [Right Arm] 112/50 L Blood Pressure Mean [Right Arm] 70 02 Sat by Pulse Oximetry 96 Oxygen Delivery Method Room Air - Lab Data Lab results reviewed: Yes: I reviewed the patient's lab results. Lab Results 06/19/21 04:06: WBC 9.4, RBC 4.35 L, Hgb 14.7, Hct 43.9, MCV 100.8 H, MCH 33.7 H, MCHC 33.5, RDW 13.1, Plt Count 228, MPV 8.2, Neut % (Auto) 58.6, Lymph % (Auto) 32.1, [place] % (Auto) 7.1, Eos % (Auto) 1.6, Baso % (Auto) 0.5, Neut # (Auto) 5.5, Lymph # (Auto) 3.0, Todd # (Auto) 0.7, Eos # (Auto) 0.2, Baso # (Auto) 0.1, ESR 16 06/19/21 04:06: Sodium 134 L, Potassium 4.0, Chloride 100, Carbon Dioxide 29, Anion Gap 9.0, BUN 12, Creatinine 1.00, Estimated Creat Clear 77, Estimated GFR 72, Est GFR ( Amer) 87, Glucose 125 H, Calcium 8.7, Total Bilirubin 0.4, AST 26, ALT 16, Alkaline Phosphatase 73, C-Reactive Protein 3.3, Total Protein 6.1 L, Albumin 3.6, Globulin 2.5, Albumin/Globulin Ratio 1.4, Procalcitonin 0.080 06/19/21 04:10: Urine Color Yellow, Urine Appearance Clear, Urine pH 7.5, Ur Specific [place] 1.015, Urine Protein Negative, Urine Glucose (UA) Negative, Urine Ketones Negative, Urine Blood Negative, Urine Nitrate Negative, Urine Bilirubin Negative, Urine Urobilinogen 0.2, Ur Leukocyte Esterase Negative, Urine WBC 3-5, Urine Bacteria 1+ Result diagrams: 06/19/21 04:06 06/19/21 04:06 Orders (Tests/Meds): ED MEDICATIONS Generic Name Dose Route Start Last Admin Trade Name Freq PRN Reason Stop Dose Admin Sodium Chloride 1,000 mls @ 999 mls/hr 06/19/21 04:00 06/19/21 04:09 Sod Chlor 0.9% 1000ml Bag IV 06/19/21 05:00 999 mls/hr .Q1H1M LISA Administration Discontinued Medications Generic Name Dose Route Start Last Admin Trade Name Freq PRN Reason Stop Dose Admin Ketorolac Tromethamine 30 mg 06/19/21 03:47 06/19/21 04:08 Ketorolac 30mg/Ml Vial IV 06/19/21 03:48 30 mg ONCE ONE Administration Ondansetron HCl 4 mg 06/19/21 03:47 06/19/21 04:08 Ondansetron 4mg/2ml Vial IV 06/19/21 03:48 4 mg ONCE ONE Administration ORDERS Category Date Time Status Urine Culture Stat Micro 06/19/21 05:49 Ordered - CT Data CT Scan: Abdomen, Pelvis Time Received: 05:[address] Reviewed: Yes: I have viewed the radiologist's interpretation Preliminary Findings: Abnormal (see
[2021-06-19 04:15] LABS: Basophils # 0.1 K/mm3 (0-0.2); Basophils % 0.5 % (0.1-2.0); Eosinophils # 0.2 K/mm3 (0.0-0.4); Eosinophils % 1.6 % (0.1-12.0); Hematocrit 43.9 % (42.0-52.0); Hemoglobin 14.7 g/dL (14.1-18.0); Lymphocytes % 32.1 % (10-50); Mean Corpuscular HGB Conc 33.5 g/dL (31.8-35.4); Mean Corpuscular Hemoglobin 33.7 pg (27.0-31.2); Mean Corpuscular Volume 100.8 fl (80-94); Mean Platelet Volume 8.2 fl (7.4-10.4); Monocytes # 0.7 K/mm3 (0.1-1.0); Monocytes % 7.1 % (1.7-9.3); Neutrophils # 5.5 K/mm3 (1.8-7.8); Neutrophils % 58.6 % (37.0-80.0); Platelet Count 228 K/mm3 (142-424); Red Blood Count 4.35 M/mm3 (4.60-6.20); Red Cell Distribution Width 13.1 % (11.5-17.5); White Blood Count 9.4 K/mm3 (4.8-10.8)
[2021-06-19 04:17] LABS: Microscopic, Urine URINE MICROSCOPIC (MICROSCOPIC)
[2021-06-19 04:20] LABS: Appearance,Urine CLEAR (Clear); Bilirubin,Urine Negative (Negative); Blood, Urine Negative (Negative); Color,Urine YELLOW (Yellow); Glucose,Urine (UA) Negative (Negative); Ketones,Urine Negative (Negative); Leukocyte Esterase,Urine Negative (Negative); Nitrate,Urine Negative (Negative); PH,Urine 7.5 (5.0-8.5); Protein,Urine Negative (Negative); Specific Gravity, Urine 1.015 (1.005-1.030); Urobilinogen,Urine 0.2 EU/dl (0.2)
[2021-06-19 04:22] LABS: Alanine Aminotransferase 16 U/L (12-78); Albumin Level 3.6 g/dl (3.5-5.0); Albumin/Globulin Ratio 1.4 (1.1-1.8); Alkaline Phosphatase 73 U/L (38-126); Aspartate Amino Transferase 26 U/L (17-59); Bilirubin,Total 0.4 mg/dl (0.2-1.3); Blood Urea Nitrogen 12 mg/dl (9-20); Calcium 8.7 mg/dl (8.4-10.2); Carbon Dioxide 29 mmol/L (22.0-30.0); Chloride 100 mmol/L (98-107); Creatinine Clearance Estimated 77 mL/min (50-200); Estimated Glomerular Filt Rate 72 ml/min (>60); GFR (African American) 87 ML/MIN (>60); Globulin 2.5 g/dL (1.3-3.2); Glucose 125 mg/dl (74-100); Sodium 134 mmol/L (136-145); Total Protein,Serum 6.1 g/dl (6.3-8.2)
[2021-06-19 04:27] LABS: C-Reactive Protein 3.3 mg/L (0-4)
[2021-06-19 04:33] LABS: Bacteria,Urine 1+ /lpf
[2021-06-19 04:59] LABS: Erythrocyte Sedimentation Rate 16 mm/hr (0-20)
[2021-06-19 05:00] VITALS: BP 166/81; PULSE 80; O2SAT 97
[2021-06-19 05:30] VITALS: BP 170/83; PULSE 81; O2SAT 97
[2021-06-19 06:01] VITALS: BP 172/85; PULSE 76; RESP 18; TEMP 36.7; O2SAT 97
== END 2021-06-19 06:08 | disposition home or self-care (01) ==
PROVIDERS: Emergency Provider Emergency Medicine; PCP Internal Medicine
DX: N13.30 Unspecified hydronephrosis (principal); I71.4 Abdominal aortic aneurysm, without rupture; K57.90 Diverticulosis of intestine, part unspecified, without perforation or abscess without bleeding; C68.9 Malignant neoplasm of urinary organ, unspecified; Z95.1 Presence of aortocoronary bypass graft; E03.9 Hypothyroidism, unspecified; M47.816 Spondylosis without myelopathy or radiculopathy, lumbar region; J44.9 Chronic obstructive pulmonary disease, unspecified
CPT/HCPCS: 74176; 80053; 81001; 84145; 85025; 85651; 86140; 87086; 96365; 96375; 99283; J2405

== ENCOUNTER 2021-06-24 18:10 | Emergency (ER) | payer MEDICARE, SELFPAY ==
[2021-06-24 18:11] VITALS: BP 203/98; PULSE 98; RESP 18; TEMP 36.7; O2SAT 98; BMI 30.4
--- NOTE | 2021-06-24 18:28 | CT_ITS ---
PROCEDURE INFORMATION: Exam: CT Abdomen And Pelvis With Contrast Exam date and time: 06/24/21 06:28 PM Age: 81 years old Clinical indication: Abdominal pain; Localized; Right lower quadrant (rlq); Prior surgery; Additional info: Abdomen TECHNIQUE: Imaging protocol: Computed tomography of the abdomen and pelvis with contrast. Radiation optimization: All CT scans at this facility use at least one of these dose optimization techniques: automated exposure control; mA and/or kV adjustment per patient size (includes targeted exams where dose is matched to clinical indication); or iterative reconstruction. Contrast material: ISOVUE; Contrast volume: 75 ml; Contrast route: IV; COMPARISON: CT ABDOMEN PELVIS WO CON 06/19/21 04:15 AM FINDINGS: Tubes, catheters and devices: None noted. Lungs: Lung bases appear clear. Heart: CABG. No cardiomegaly. No significant pericardial effusion. Liver: Normal. No mass. Gallbladder and bile ducts: Cholecystectomy. Pancreas: Normal. No ductal dilation. Spleen: Calcified granulomata. No splenomegaly. Adrenal glands: Normal. No mass. Kidneys and ureters: Right hydronephrosis with hydroureter, extending to the right trigone where there is an asymmetric bladder thickening concerning for obstructive malignancy. Malignancy appears to encompass the distal ureter. Concern for transitional cell carcinoma. Simple renal cysts bilaterally. Stomach and bowel: Colonic diverticulosis without diverticulitis. No obstruction. No mucosal thickening. Appendix: No evidence of appendicitis. Intraperitoneal space: Unremarkable. No free air. No significant fluid collection. Retroperitoneal space: No significant retroperitoneal inflammatory changes are noted. Vasculature: Unremarkable. 4 cm fusiform infrarenal abdominal aortic aneurysm without iliac artery extension. Lymph nodes: Unremarkable. No enlarged lymph nodes. Urinary bladder: Asymmetric bladder wall thickening on the right, suspect transitional cell carcinoma. Reproductive: Unremarkable as visualized. Bones/joints: Vacuum disc L4-L5. No acute fracture. Soft tissues: Unremarkable. IMPRESSION: 1. Moderate to severe right hydronephrosis and hydroureter, with obstruction at the right trigone secondary to bladder tumor. 2. 4 cm fusiform infrarenal abdominal aortic aneurysm without iliac artery extension. 3. Colonic diverticulosis without diverticulitis. 4. Similar appearance to comparison study 06/19/2021. COMMENTS: Consistent with the [employer]'s Incidental Findings Committee white paper (J Am Lizy Radiol 2018): Any incidental renal lesion less than 1 cm or classified as too small to characterize, or any incidental cystic renal lesion characterized as simple-appearing, is likely benign. No follow-up imaging is recommended for these lesions per consensus recommendations based on imaging criteria. THIS REPORT CONTAINS FINDINGS THAT MAY BE CRITICAL TO PATIENT CARE. The findings were verbally communicated via telephone conference with Opal Adron at 08:35 PM EDT on 06/24/21. The findings were acknowledged and understood.
[2021-06-24 18:34] VITALS: BP 205/95; PULSE 68; RESP 18; O2SAT 98
[2021-06-24 18:55] LABS: Chloride 94 mmol/L (98-107); Sodium 132 mmol/L (136-145)
[2021-06-24 18:58] LABS: Alanine Aminotransferase 16 U/L (12-78); Albumin Level 4.1 g/dl (3.5-5.0); Albumin/Globulin Ratio 1.5 (1.1-1.8); Alkaline Phosphatase 81 U/L (38-126); Aspartate Amino Transferase 28 U/L (17-59); Bilirubin,Total 0.7 mg/dl (0.2-1.3); Blood Urea Nitrogen 13 mg/dl (9-20); Carbon Dioxide 29 mmol/L (22.0-30.0); Creatinine Clearance Estimated 55 mL/min (50-200); Estimated Glomerular Filt Rate 49 ml/min (>60); GFR (African American) 59 ML/MIN (>60); Globulin 2.7 g/dL (1.3-3.2); Total Protein,Serum 6.8 g/dl (6.3-8.2)
[2021-06-24 18:59] LABS: Calcium 9.1 mg/dl (8.4-10.2); Glucose 126 mg/dl (74-100)
[2021-06-24 19:00] VITALS: BP 218/110; PULSE 78; RESP 18; O2SAT 98
[2021-06-24 19:01] LABS: Basophils # 0.1 K/mm3 (0-0.2); Basophils % 0.4 % (0.1-2.0); Eosinophils # 0.1 K/mm3 (0.0-0.4); Eosinophils % 0.7 % (0.1-12.0); Hematocrit 46.9 % (42.0-52.0); Hemoglobin 15.4 g/dL (14.1-18.0); Lymphocytes # 2.7 K/mm3 (0.7-4.5); Lymphocytes % 23.2 % (10-50); Mean Corpuscular HGB Conc 32.9 g/dL (31.8-35.4); Mean Corpuscular Hemoglobin 33.9 pg (27.0-31.2); Mean Platelet Volume 7.8 fl (7.4-10.4); Monocytes # 0.9 K/mm3 (0.1-1.0); Neutrophils # 7.9 K/mm3 (1.8-7.8); Neutrophils % 67.6 % (37.0-80.0); Platelet Count 244 K/mm3 (142-424); Red Blood Count 4.55 M/mm3 (4.60-6.20); Red Cell Distribution Width 12.4 % (11.5-17.5); White Blood Count 11.7 K/mm3 (4.8-10.8)
[2021-06-24 20:05] VITALS: BP 229/104; PULSE 85; RESP 18; O2SAT 97
[2021-06-24 20:09] LABS: Microscopic, Urine URINE MICROSCOPIC (MICROSCOPIC)
[2021-06-24 20:11] LABS: Appearance,Urine CLEAR (Clear); Bilirubin,Urine Negative (Negative); Blood, Urine TRACE-I (Negative); Color,Urine YELLOW (Yellow); Glucose,Urine (UA) Negative (Negative); Ketones,Urine 1+ (Negative); Leukocyte Esterase,Urine Negative (Negative); Nitrate,Urine Negative (Negative); Protein,Urine Negative (Negative); Specific Gravity, Urine 1.015 (1.005-1.030); Urobilinogen,Urine 0.2 EU/dl (0.2)
[2021-06-24 20:25] LABS: Bacteria,Urine Trace /lpf; WBC,Urine Occasional #/hpf (0-3)
--- NOTE | 2021-06-24 20:27 | HMH.EDABDPAI ---
ED Disposition Clinical Impression: Hydronephrosis, Hydronephrosis due to obstruction of ureter, Diverticulosis Disposition: Home, Self-Care Condition on Discharge: Good Instructions: DI for Acute Abdominal Pain Additional Instructions: Tomorrow morning you may also take 400 mg of ibuprofen, you may take this every 6 hours. Take the pain medication the right prescribed. Take the Flomax as prescribed, begin taking the MiraLAX tomorrow. Return to the emergency department for any new or concerning symptoms. Prescriptions: Tamsulosin HCl [Flomax 0.4mg capsule] 0.4 mg PO HS #30 cap Transmission Status: Received by [facility] polyethylene glycoL 3350 [Miralax 17gm Packet] 17 gm PO DAILYP PRN #30 packet PRN Reason: Constipation Transmission Status: Received by [facility] Referrals: Venkata Baldwin [Primary Care Provider] - - Critical Care Critical Care Time: No Attestation: On 06/24/21, the high probability of a clinically significant, sudden or life threatening deterioration of the following system(s) required my full and direct attention, intervention and personal management. The time I documented below is in addition to time spent performing reported procedures but includes the following listed in this critical care notation. Medical Decision Making - Medical Records Medical records reviewed: Yes: I reviewed the patient's medical records. - Link Inquiry Pt receiving controlled substance: No Vital Signs: 06/24/21 18:11 06/24/21 18:34 06/24/21 19:00 Temperature 98.0 F Temperature Source Oral Pulse Rate 68 78 Pulse Rate [Left Radial] 98 H Respiratory Rate 18 18 18 Blood Pressure 205/95 H 218/110 H Blood Pressure [Right Arm] 203/98 H Blood Pressure Mean 131 140 Blood Pressure Mean [Right Arm] 133 Blood Pressure Source [Right Arm] Automatic Cuff Blood Pressure Position [Right Arm] Sitting 02 Sat by Pulse Oximetry 98 98 98 Oxygen Delivery Method Room Air 06/24/21 20:05 Temperature Temperature Source Pulse Rate 85 Pulse Rate [Left Radial] Respiratory Rate 18 Blood Pressure 229/104 H Blood Pressure [Right Arm] Blood Pressure Mean 143 Blood Pressure Mean [Right Arm] Blood Pressure Source [Right Arm] Blood Pressure Position [Right Arm] 02 Sat by Pulse Oximetry 97 Oxygen Delivery Method - Lab Data Lab Results 06/24/21 18:30: WBC 11.7 H, RBC 4.55 L, Hgb 15.4, Hct 46.9, MCV 103.0 H, MCH 33.9 H, MCHC 32.9, RDW 12.4, Plt Count 244, MPV 7.8, Neut % (Auto) 67.6, Lymph % (Auto) 23.2, [place] % (Auto) 8.0, Eos % (Auto) 0.7, Baso % (Auto) 0.4, Neut # (Auto) 7.9 H, Lymph # (Auto) 2.7, [place] # (Auto) 0.9, Eos # (Auto) 0.1, Baso # (Auto) 0.1 06/24/21 18:30: Sodium 132 L, Potassium 4.0, Chloride 94 L, Carbon Dioxide 29, Anion Gap 13.0, BUN 13, Creatinine 1.40 H, Estimated Creat Clear 55, Estimated GFR 49 L, Est GFR ( Amer) 59, Glucose 126 H, Calcium 9.1, Total Bilirubin 0.7, AST 28, ALT 16, Alkaline Phosphatase 81, Total Protein 6.8, Albumin 4.1, Globulin 2.7, Albumin/Globulin Ratio 1.5 06/24/21 20:05: Urine Color Yellow, Urine Appearance Clear, Urine pH 8.0, Ur Specific [place] 1.015, Urine Protein Negative, Urine Glucose (UA) Negative, Urine Ketones 1+, Urine Blood Trace-i, Urine Nitrate Negative, Urine Bilirubin Negative, Urine Urobilinogen 0.2, Ur Leukocyte Esterase Negative, Urine RBC None, Urine WBC Occasional, Ur Squamous Epith Cells None, Urine Bacteria Trace Result diagrams: 06/24/21 18:30 06/24/21 18:30 Orders (Tests/Meds): ED MEDICATIONS Generic Name Dose Route Start Last Admin Trade Name Freq PRN Reason Stop Dose Admin Sodium Chloride 1,000 mls @ 999 mls/hr 06/24/21 18:30 06/24/21 18:38 Sod Chlor 0.9% 1000ml Bag IV 06/24/21 19:30 999 mls/hr .[id number] LISA Administration Discontinued Medications Generic Name Dose Route Start Last Admin Trade Name Freq PRN Reason Stop Dose Admin Hydromorphone HCl 0.5 mg 06/24/21 19:21
[2021-06-24 20:58] VITALS: BP 197/98; PULSE 73; RESP 16; TEMP 36.8; O2SAT 99
== END 2021-06-24 21:16 | disposition home or self-care (01) ==
PROVIDERS: Emergency Provider Emergency Medicine; PCP Internal Medicine
DX: N13.1 Hydronephrosis with ureteral stricture, not elsewhere classified (principal); I25.10 Atherosclerotic heart disease of native coronary artery without angina pectoris; Z95.1 Presence of aortocoronary bypass graft; J44.9 Chronic obstructive pulmonary disease, unspecified; E78.5 Hyperlipidemia, unspecified; I10 Essential (primary) hypertension; E03.9 Hypothyroidism, unspecified; Z79.899 Other long term (current) drug therapy
CPT/HCPCS: 74177; 80053; 81001; 85025; 96372; 96374; 99283; J2405; Q9967

== ENCOUNTER 2021-06-26 15:35 | Observation (INO) | payer MEDICARE, SELFPAY ==
[2021-06-26 15:35] VITALS: BP 138/66; PULSE 95; RESP 16; TEMP 36.9; O2SAT 98; BMI 30.4
[2021-06-26 17:10] VITALS: BP 153/77; PULSE 84; RESP 16; TEMP 36.6; O2SAT 94; BMI 304156.3
[2021-06-26 17:20] LABS: Basophils % 0.3 % (0.1-2.0); Eosinophils # 0.1 K/mm3 (0.0-0.4); Eosinophils % 0.6 % (0.1-12.0); Hematocrit 44.3 % (42.0-52.0); Hemoglobin 14.7 g/dL (14.1-18.0); Lymphocytes # 2.3 K/mm3 (0.7-4.5); Lymphocytes % 22.3 % (10-50); Mean Corpuscular HGB Conc 33.3 g/dL (31.8-35.4); Mean Corpuscular Hemoglobin 33.7 pg (27.0-31.2); Mean Corpuscular Volume 101.2 fl (80-94); Mean Platelet Volume 7.7 fl (7.4-10.4); Monocytes % 9.4 % (1.7-9.3); Neutrophils % 67.4 % (37.0-80.0); Platelet Count 232 K/mm3 (142-424); Red Blood Count 4.37 M/mm3 (4.60-6.20); Red Cell Distribution Width 12.3 % (11.5-17.5); White Blood Count 10.4 K/mm3 (4.8-10.8)
[2021-06-26 17:34] LABS: Alanine Aminotransferase 13 U/L (12-78); Albumin Level 3.7 g/dl (3.5-5.0); Albumin/Globulin Ratio 1.4 (1.1-1.8); Alkaline Phosphatase 68 U/L (38-126); Anion Gap 7.8 mEq/L (5-15); Aspartate Amino Transferase 23 U/L (17-59); Bilirubin,Total 0.7 mg/dl (0.2-1.3); Blood Urea Nitrogen 13 mg/dl (9-20); Calcium 8.5 mg/dl (8.4-10.2); Carbon Dioxide 30 mmol/L (22.0-30.0); Chloride 94 mmol/L (98-107); Creatinine Clearance Estimated 52 mL/min (50-200); Estimated Glomerular Filt Rate 45 ml/min (>60); GFR (African American) 54 ML/MIN (>60); Globulin 2.7 g/dL (1.3-3.2); Glucose 108 mg/dl (74-100); Potassium 4.8 mmoL/L (3.5-5.1); Sodium 127 mmol/L (136-145); Total Protein,Serum 6.4 g/dl (6.3-8.2)
[2021-06-26 18:18] LABS: Microscopic, Urine URINE MICROSCOPIC (MICROSCOPIC)
[2021-06-26 18:20] LABS: Appearance,Urine CLEAR (Clear); Bilirubin,Urine Negative (Negative); Blood, Urine Negative (Negative); Color,Urine YELLOW (Yellow); Glucose,Urine (UA) Negative (Negative); Ketones,Urine Negative (Negative); Leukocyte Esterase,Urine Negative (Negative); Nitrate,Urine Negative (Negative); Protein,Urine Negative (Negative); Urobilinogen,Urine 0.2 EU/dl (0.2)
[2021-06-26 18:36] LABS: Bacteria,Urine Trace /lpf; RBC,Urine Occasional #/hpf (0-3); Squamous Epithelial Cell,Urine Occasional #/hpf (0-5)
--- NOTE | 2021-06-26 18:38 | PC.NURSE ---
calling [facility]
--- NOTE | 2021-06-26 18:43 | PC.NURSE ---
speaking to dr natarajan at [facility]
--- NOTE | 2021-06-26 18:49 | PC.NURSE ---
[facility] on divert
--- NOTE | 2021-06-26 18:58 | PC.NURSE ---
dr karlie gill
--- NOTE | 2021-06-26 19:11 | PC.NURSE ---
warehouse engineer notified of admission
--- NOTE | 2021-06-26 19:14 | HMH.EDABDPAI ---
ED Disposition Clinical Impression: Abdominal pain Qualifiers: Abdominal location: right lower quadrant Qualified Code(s): R10.31 - Right lower quadrant pain Disposition: Admitted As Inpatient Condition on Discharge: Fair Instructions: DI for Acute Abdominal Pain Referrals: Venkata Baldwin [Primary Care Provider] - - Critical Care Critical Care Time: No Attestation: On 06/26/21, the high probability of a clinically significant, sudden or life threatening deterioration of the following system(s) required my full and direct attention, intervention and personal management. The time I documented below is in addition to time spent performing reported procedures but includes the following listed in this critical care notation. Medical Decision Making - Link Inquiry Pt receiving controlled substance: No Vital Signs: 06/26/21 15:35 06/26/21 17:10 Temperature 98.4 F 98 F Temperature Source Oral Oral Pulse Rate [Radial] 95 H 84 Respiratory Rate 16 16 Blood Pressure [Right Arm] 138/66 153/77 H Blood Pressure Mean [Right Arm] 90 102 Blood Pressure Position [Right Arm] Sitting Sitting 02 Sat by Pulse Oximetry 98 94 L Oxygen Delivery Method Room Air Room Air - Lab Data Lab Results 06/26/21 17:12: WBC 10.4, RBC 4.37 L, Hgb 14.7, Hct 44.3, MCV 101.2 H, MCH 33.7 H, MCHC 33.3, RDW 12.3, Plt Count 232, MPV 7.7, Neut % (Auto) 67.4, Lymph % (Auto) 22.3, [place] % (Auto) 9.4 H, Eos % (Auto) 0.6, Baso % (Auto) 0.3, Neut # (Auto) 7.0, Lymph # (Auto) 2.3, [place] # (Auto) 1.0, Eos # (Auto) 0.1, Baso # (Auto) 0.0 06/26/21 17:12: Sodium 127 L, Potassium 4.8, Chloride 94 L, Carbon Dioxide 30, Anion Gap 7.8, BUN 13, Creatinine 1.50 H, Estimated Creat Clear 52, Estimated GFR 45 L, Est GFR ( Amer) 54 L, Glucose 108 H, Calcium 8.5, Total Bilirubin 0.7, AST 23, ALT 13, Alkaline Phosphatase 68, Total Protein 6.4, Albumin 3.7, Globulin 2.7, Albumin/Globulin Ratio 1.4 06/26/21 18:00: Urine Color Yellow, Urine Appearance Clear, Urine pH 7.0, Ur Specific [place] 1.010, Urine Protein Negative, Urine Glucose (UA) Negative, Urine Ketones Negative, Urine Blood Negative, Urine Nitrate Negative, Urine Bilirubin Negative, Urine Urobilinogen 0.2, Ur Leukocyte Esterase Negative, Urine RBC Occasional, Urine WBC 3-5, Ur Squamous Epith Cells Occasional, Urine Bacteria Trace Result diagrams: 06/26/21 17:12 06/26/21 17:12 Orders (Tests/Meds): ED MEDICATIONS Discontinued Medications Generic Name Dose Route Start Last Admin Trade Name Freq PRN Reason Stop Dose Admin Hydromorphone HCl 0.5 mg 06/26/21 17:56 06/26/21 17:30 Hydromorphone 2mg/Ml Syringe IV 06/26/21 17:57 0.5 mg ONCE ONE Administration Ondansetron HCl 4 mg 06/26/21 17:55 06/26/21 17:30 Ondansetron 4mg/2ml Vial IV 06/26/21 17:56 4 mg ONCE ONE Administration ORDERS Category Date Time Status Rapid PCR Covid and Flu A/B Stat Lab 06/26/21 19:07 Ordered Medical Decision Narrative: Patient is an 81-year-old male with a past medical history of recently diagnosed bladder tumor presenting for evaluation of pain. He is in no acute distress, afebrile and hemodynamically stable, nontoxic in appearance. Physical exam demonstrates an uncomfortable appearing male with severe tenderness in the right lower quadrant without rigidity or guarding, remainder abdominal exam benign, normal genitourinary exam, normal cardiopulmonary exam with remainder physical exam within normal limits. Differential diagnosis includes but is not limited to progression of possible neoplastic disease, urinary tract infection, electrolyte abnormality, colonic spasm. Will obtain broad laboratory analysis, faculty support coordinator morphine, Zofran, IV fluids and reassess the patient clinically. Reassessment: Patient continues to be in no acute distress hemodynamic stable, with improvement in pain since the medication. He continues to complain of severe pain intermittently. CT scan obtained 2 days ago was revi
--- NOTE | 2021-06-26 19:15 | PC.NURSE ---
pt is unable to state what medication he takes
[2021-06-26 19:20] LABS: Coronavirus 19, PCR Not Detected (NotDetected); Influenza A, PCR Not Detected (NotDetected); Influenza B, PCR Not Detected (NotDetected)
[2021-06-26 20:02] VITALS: BMI 33.0
[2021-06-26 20:30] VITALS: BP 142/74; PULSE 82; RESP 16; TEMP 36.7; O2SAT 96
--- NOTE | 2021-06-26 20:35 | PC.NURSE ---
patient up to floor via wheelchair at the time .
[2021-06-26 21:02] VITALS: BP 162/83; PULSE 82; RESP 20; TEMP 36.5; O2SAT 96
[2021-06-27 03:42] VITALS: BP 142/70; PULSE 88; RESP 18; TEMP 36.8; O2SAT 95
[2021-06-27 04:58] VITALS: BMI 33.0
--- NOTE | 2021-06-27 07:20 | HMH.PHAVTE ---
[facility] Pharm[facility] VTE Monitoring - Patient Demographics Admission date: 06/26/21 Report Date: 06/27/21 Time: 07:20 Allergies/Adverse Reactions: Patient Allergies No Known Drug Allergies [NO KNOWN DRUG ALLERGIES] Allergy (Unknown, Verified 06/24/21 14:13) Height: 1.78 m Weight: 104.508 kg Patient Problems: Current Active Problems Abdominal pain (Acute) - VTE Risk Labs: VTE Related Lab Results Hgb 14.7 g/dL (14.1-18.0) 06/26/21 17:12 Hct 44.3 % (42.0-52.0) 06/26/21 17:12 Plt Count 232 K/mm3 (142-424) 06/26/21 17:12 BUN 13 mg/dl (9-20) 06/26/21 17:12 Creatinine 1.50 mg/dl (0.66-1.25) H 06/26/21 17:12 Estimated Creat Clear 52 mL/min (50-200) 06/26/21 17:12 Clinical Trial Participant: No - Prophylaxis VTE Prophylaxis Ordered?: Yes Types of VTE Prophylaxis: TEDS Knee High
[2021-06-27 07:53] VITALS: O2SAT 96
--- NOTE | 2021-06-27 07:53 | HMH.PHAINT ---
MEDICATION RECONCILIATION COMPLETE USING SURESCRIPTS, PREVIOUS OFFICE VISIT, AND TALKING TO THE PATIENT
[2021-06-27 08:00] VITALS: BP 133/67; PULSE 86; RESP 18; TEMP 36.6; O2SAT 95
--- NOTE | 2021-06-27 08:44 | HMH.HP ---
*Admission Date: 06/26/21 *Chief complaint: Abdominal pain *History of present illness: 81-year-old white male, admitted through service call in the ER, who has a history of coronary atherosclerosis, status post CABG, status post cholecystectomy and history of COPD, possibly from secondhand smoke exposure as he is never been a smoker. He over the past couple of weeks has had some increase in abdominal pain and a work-up has revealed evidence of a bladder tumor with left-sided hydronephrosis. He has seen Dr. Poole in consultation and surgery has been planned for July 08 here at [facility]. Unfortunately, over the past 24 to 48 hours his pain became intolerable with vomiting, intractable pain and diminished urine output over the past 48 hours with change in the color of his urine to a dark color and he came to the emergency department. ER evaluation revealed progression of hydronephrosis without clear obstruction and enlargement of the apparent bladder tumor. He was admitted for fluids, IV pain control and urology reevaluation. [facility] History I have reviewed the patient's past medical history: Yes Medical History: Reports:: Carotid Stenosis, Chronic Obstructive Pulmonary Disease (COPD), Coronary Artery Disease, Hyperlipidemia, Hypertension Denies:: Cancer, Diabetes Mellitus Type 1, Diabetes Mellitus Type 2, MRSA, Seizures *Have you ever received a pneumonia vaccine?: Yes *Have you received a flu vaccine this season?: Yes Other Medical History: Reports: Arthritis, Hypothyroidism, Thyroid Disease Laterality Cases: Right: Arthroscopy Knee, Bilateral: Other Other Surgeries: Yes: No Previous Surgery, Cholecystectomy, Colonoscopy, Coronary Stent, EGD, Open Heart Surgery Amputation: No Fractures: No - *Social History Last grade of school completed: High school graduate Smoking Status: Never smoker Alcohol Intake: never Substance Use Type: denies use *Occupational Status:: retired Housing: house Household Members: spouse *Travel in the last 8 weeks: None Family Hx:: No significant family history Review of Systems - Review of Systems Review of systems:: pertinent systems reviewed and negative unless documented below Meds Home Medications Medication Instructions Recorded Confirmed Type fluticasone propionate 50 1 spray INTRANASAL DAILY 30 Days 01/18/18 06/27/21 History mcg/actuation nasal spray,suspension folic acid 1 mg tablet 1 mg PO DAILY 90 Days 01/18/18 06/26/21 History levothyroxine 100 mcg tablet 100 mcg PO DAILY 90 Days 01/18/18 06/26/21 History aspirin 81 mg tablet,delayed 81 mg PO DAILY 07/21/18 06/26/21 History release Cetirizine HCl [Zyrtec] 10 mg PO DAILY 04/02/20 06/26/21 History Montelukast Sodium 10 mg PO PM 04/02/20 06/26/21 History Ezetimibe 10 mg PO DAILY 05/28/20 06/26/21 History levocetirizine 5 mg tablet 5 mg PO DAILY tab 12/24/20 06/26/21 History Hydrocod/Acet 5/325 mg [[place] 1 tab PO Q4HP PRN #10 tab 06/24/21 06/26/21 Rx 5/325mg tablet] polyethylene glycoL 3350 [Miralax 17 gm PO DAILYP PRN #30 packet 06/24/21 06/26/21 Rx 17gm Packet] Bioflav,Lemon/Vit Bcomp,C 1 tab PO BID 06/26/21 06/26/21 History [Lipo-Flavonoid Plus] Tamsulosin HCl [Flomax 0.4mg 0.4 mg PO HS 06/26/21 06/26/21 History capsule] Rosuvastatin Calcium 40 mg PO WEEKLY 06/27/21 06/27/21 History Allergies Allergy/AdvReac Type Severity Reaction Status Date / Time No Known Drug Allergies Allergy Unknown Verified 06/24/21 14:13 [NO KNOWN DRUG ALLERGIES] Exam Vital signs and Labs for Last 24 Hours: Temp Pulse Resp BP Pulse Ox 98.3 F 88 18 142/70 H 96 06/27/21 03:42 06/27/21 03:42 06/27/21 03:42 06/27/21 03:42 06/27/21 07:53 Laboratory Results - last 24 hr 06/26/21 17:12: WBC 10.4, RBC 4.37 L, Hgb 14.7, Hct 44.3, MCV 101.2 H, MCH 33.7 H, MCHC 33.3, RDW 12.3, Plt Count 232, MPV 7.7, Neut % (Auto) 67.4, Lymph % (Auto) 22.3, [place] % (Auto) 9.4 H, Eos % (Auto) 0.6, Baso % (Auto)
[2021-06-27 11:17] VITALS: BP 164/80; PULSE 89; RESP 18; TEMP 36.8; O2SAT 94
--- NOTE | 2021-06-27 14:15 | HMH.CONS ---
*Admission Date: 06/26/21 *Reason for consult:: Right flank pain *History of present illness: Patient is an 81-year-old white male who was seen in the office earlier this week for complaints of right-sided flank pain and CT evidence of right-sided hydronephrosis with obstructive problem at the right ureterovesical junction. He was put on the OR schedule for July 08 as he is on aspirin. He was admitted to the hospital yesterday with recurring right-sided flank pain. A CT scan was repeated which showed stable right-sided hydroureteronephrosis and a lesion along the right side of the bladder. He is currently comfortable and was made n.p.o. for possible procedure today. He has been off of his aspirin for a couple of days now. He is comfortable in his bed at the time of exam. He has been taking some pain medication which is constipated him and he states he has not had a bowel movement since . His abdomen is soft however and his CT scan does not show evidence of obstruction. [facility] History Medical History: Reports:: Carotid Stenosis, Chronic Obstructive Pulmonary Disease (COPD), Coronary Artery Disease, Hyperlipidemia, Hypertension Denies:: Cancer, Diabetes Mellitus Type 1, Diabetes Mellitus Type 2, MRSA, Seizures *Have you ever received a pneumonia vaccine?: Yes *Have you received a flu vaccine this season?: Yes Other Medical History: Reports: Arthritis, Hypothyroidism, Thyroid Disease Laterality Cases: Right: Arthroscopy Knee, Bilateral: Other Other Surgeries: Yes: No Previous Surgery, Cholecystectomy, Colonoscopy, Coronary Stent, EGD, Open Heart Surgery Amputation: No Fractures: No - *Social History Last grade of school completed: High school graduate Smoking Status: Never smoker Alcohol Intake: never Substance Use Type: denies use *Occupational Status:: retired Housing: house Household Members: spouse *Travel in the last 8 weeks: None Family Hx:: No significant family history Review of Systems - Review of Systems Review of systems:: pertinent systems reviewed and negative unless documented below Meds Home Medications Medication Instructions Recorded Confirmed Type fluticasone propionate 50 1 spray INTRANASAL DAILY 30 Days 01/18/18 06/27/21 History mcg/actuation nasal spray,suspension folic acid 1 mg tablet 1 mg PO DAILY 90 Days 01/18/18 06/26/21 History levothyroxine 100 mcg tablet 100 mcg PO DAILY 90 Days 01/18/18 06/26/21 History aspirin 81 mg tablet,delayed 81 mg PO DAILY 07/21/18 06/26/21 History release Cetirizine HCl [Zyrtec] 10 mg PO DAILY 04/02/20 06/26/21 History Montelukast Sodium 10 mg PO PM 04/02/20 06/26/21 History Ezetimibe 10 mg PO DAILY 05/28/20 06/26/21 History levocetirizine 5 mg tablet 5 mg PO DAILY tab 12/24/20 06/26/21 History Hydrocod/Acet 5/325 mg [[place] 1 tab PO Q4HP PRN #10 tab 06/24/21 06/26/21 Rx 5/325mg tablet] polyethylene glycoL 3350 [Miralax 17 gm PO DAILYP PRN #30 packet 06/24/21 06/26/21 Rx 17gm Packet] Bioflav,Lemon/Vit Bcomp,C 1 tab PO BID 06/26/21 06/26/21 History [Lipo-Flavonoid Plus] Tamsulosin HCl [Flomax 0.4mg 0.4 mg PO HS 06/26/21 06/26/21 History capsule] Rosuvastatin Calcium 40 mg PO WEEKLY 06/27/21 06/27/21 History Allergies Allergy/AdvReac Type Severity Reaction Status Date / Time No Known Drug Allergies Allergy Unknown Verified 06/24/21 14:13 [NO KNOWN DRUG ALLERGIES] Exam Vital signs and Labs for Last 24 Hours: Temp Pulse Resp BP Pulse Ox 98.2 F 89 18 164/80 H 94 L 06/27/21 11:17 06/27/21 11:17 06/27/21 11:17 06/27/21 11:17 06/27/21 11:17 Laboratory Results - last 24 hr 06/26/21 17:12: WBC 10.4, RBC 4.37 L, Hgb 14.7, Hct 44.3, MCV 101.2 H, MCH 33.7 H, MCHC 33.3, RDW 12.3, Plt Count 232, MPV 7.7, Neut % (Auto) 67.4, Lymph % (Auto) 22.3, [place] % (Auto) 9.4 H, Eos % (Auto) 0.6, Baso % (Auto) 0.3, Neut # (Auto) 7.0, Lymph # (Auto) 2.3, [place] # (Auto) 1.0, Eos # (Auto) 0.1, Baso # (Auto) 0.0 06/26/21
[2021-06-27 16:00] VITALS: BP 144/67; PULSE 93; RESP 19; TEMP 36.7; O2SAT 94
[2021-06-27 19:40] VITALS: BP 164/72; PULSE 92; RESP 20; TEMP 36.9; O2SAT 96
[2021-06-28] VITALS (17 sets, daily range): BP systolic 137–187; BP diastolic 68–102; PULSE 82–108; RESP 16–18; TEMP 36.3–37; O2SAT 91–100; BMI 32.3
--- NOTE | 2021-06-28 | XR_ITS ---
PROCEDURE: XR KUB CLINICAL INDICATION: RIGH SIDE SENT PLACEMENT COMPARISON: No exams were available for comparison FINDINGS: Fluoroscopy time: 0.26 minutes. A single images submitted with the C-arm showing a ureteral stent overlying the right upper quadrant. IMPRESSION: Status post right ureteral stent placement with fluoroscopic assistance Dictated by: Jovanny Fischer MD 06/28/2021 11:38 Jovanny Fischer MD in OV 06/28/2021 11:38
--- NOTE | 2021-06-28 03:29 | PC.NURSE ---
no acute changes overnight. a&ox4. rested majority of this shift. made NPO after midnight. vss. remains on RA w/ no c/o of soa.
--- NOTE | 2021-06-28 04:48 | PC.NURSE ---
manual bp 186/88. pt reports pain 04/16. PRN morphine given per order. upon reassessment bp 186/91. pt reports pain unchanged at 04/16. spoke with Dr. Kwan who is sales representative consultant for dr. ziegler. VO given for dilaudid 2mg IV Q3hrs PRN.
[2021-06-28 06:06] LABS: Chloride 98 mmol/L (98-107); Sodium 131 mmol/L (136-145)
[2021-06-28 06:07] LABS: Basophils # 0.1 K/mm3 (0-0.2); Basophils % 0.4 % (0.1-2.0); Eosinophils # 0.1 K/mm3 (0.0-0.4); Eosinophils % 0.4 % (0.1-12.0); Hematocrit 42.3 % (42.0-52.0); Hemoglobin 13.9 g/dL (14.1-18.0); Lymphocytes % 15.4 % (10-50); Mean Corpuscular HGB Conc 32.9 g/dL (31.8-35.4); Mean Corpuscular Hemoglobin 33.5 pg (27.0-31.2); Mean Corpuscular Volume 101.7 fl (80-94); Mean Platelet Volume 7.9 fl (7.4-10.4); Monocytes # 1.2 K/mm3 (0.1-1.0); Monocytes % 9.3 % (1.7-9.3); Neutrophils # 9.8 K/mm3 (1.8-7.8); Neutrophils % 74.6 % (37.0-80.0); Platelet Count 236 K/mm3 (142-424); Potassium 4.4 mmoL/L (3.5-5.1); Red Blood Count 4.16 M/mm3 (4.60-6.20); Red Cell Distribution Width 12.4 % (11.5-17.5); White Blood Count 13.1 K/mm3 (4.8-10.8)
[2021-06-28 06:09] LABS: Alanine Aminotransferase 9 U/L (12-78); Alkaline Phosphatase 75 U/L (38-126); Anion Gap 9.4 mEq/L (5-15); Aspartate Amino Transferase 20 U/L (17-59); Bilirubin,Total 0.3 mg/dl (0.2-1.3); Blood Urea Nitrogen 16 mg/dl (9-20); Carbon Dioxide 28 mmol/L (22.0-30.0); Creatinine Clearance Estimated 59 mL/min (50-200); Estimated Glomerular Filt Rate 49 ml/min (>60); GFR (African American) 59 ML/MIN (>60)
[2021-06-28 06:10] LABS: Albumin Level 3.3 g/dl (3.5-5.0); Albumin/Globulin Ratio 1.3 (1.1-1.8); Calcium 8.5 mg/dl (8.4-10.2); Globulin 2.6 g/dL (1.3-3.2); Glucose 120 mg/dl (74-100); Magnesium 2.2 mg/dl (1.6-2.3); Total Protein,Serum 5.9 g/dl (6.3-8.2)
--- NOTE | 2021-06-28 08:48 | HMH.ACPN2 ---
Internal Medicine - PN: Subj *Date: 06/28/21 *Time: 17:12 Interval history: Patient continued to have pain overnight. improved with Hydromorphone. No N/V/D, fever, BEY, CP, SOA. NPO at this time for urological procedure. No other acute events overnight. Of note, patient denies constipation but his family reports he has not had a bowel movement in about a week. Has been on significant pain medication during that time. Takes a stool softener but not having any success. Blood pressure elevated today. Exam Vital signs and Labs for Last 24 Hours: Temp Pulse Resp BP Pulse Ox 98.5 F 82 16 187/85 H 95 06/28/21 03:51 06/28/21 03:51 06/28/21 03:51 06/28/21 03:51 06/28/21 03:51 Laboratory Results - last 24 hr 06/28/21 05:24: WBC 13.1 H D, RBC 4.16 L, Hgb 13.9 L, Hct 42.3, MCV 101.7 H, MCH 33.5 H, MCHC 32.9, RDW 12.4, Plt Count 236, MPV 7.9, Neut % (Auto) 74.6, Lymph % (Auto) 15.4, [place] % (Auto) 9.3, Eos % (Auto) 0.4, Baso % (Auto) 0.4, Neut # (Auto) 9.8 H, Lymph # (Auto) 2.0, [place] # (Auto) 1.2 H, Eos # (Auto) 0.1, Baso # (Auto) 0.1 06/28/21 05:24: Sodium 131 L, Potassium 4.4, Chloride 98, Carbon Dioxide 28, Anion Gap 9.4, BUN 16, Creatinine 1.40 H, Estimated Creat Clear 59, Estimated GFR 49 L, Est GFR ( Amer) 59, Glucose 120 H, Calcium 8.5, Magnesium 2.2, Total Bilirubin 0.3, AST 20, ALT 9 L D, Alkaline Phosphatase 75, Total Protein 5.9 L, Albumin 3.3 L, Globulin 2.6, Albumin/Globulin Ratio 1.3 I & O for Last 24 hours: Intake & Output 06/25/21 06/26/21 06/27/21 06/28/21 23:59 23:59 23:59 23:59 Intake Total 400 / 400 Output Total 0 / 0 Balance 400 / 400 Weight 104.508 kg 104.508 kg 102.33 kg - Constitutional mild distress, obese - *Routine HEENT Exam Head: Present: normocephalic Eye: Present: EOMI, PERRL ENT: Present: mucous membranes moist - *Routine Neck Exam Present: supple. Absent: lymphadenopathy - *Routine Respiratory Exam Present: CTA bilaterally - *Routine Cardiovascular Exam Present: RRR - *Routine Abdominal Exam Present: soft, normoactive bowel sounds, tenderness (Right-sided tenderness, hypoactive bowel sounds) - *Routine Extremities Exam Absent: cyanosis, clubbing, edema - *Routine Skin Exam Present: warm. Absent: rash - *Routine Neurological Exam Present: alert, oriented X3 Assessment and Plan (1) COPD (chronic obstructive pulmonary disease) Status: Acute Category: Medical Code(s): J44.9 - Chronic obstructive pulmonary disease, unspecified (2) Hydronephrosis Status: Acute Category: Medical Code(s): N13.30 - Unspecified hydronephrosis (3) Hydronephrosis due to obstruction of ureter Status: Acute Category: Medical Code(s): N13.1 - Hydronephrosis with ureteral stricture, not elsewhere classified (4) S/P CABG (coronary artery bypass graft) Status: Acute Category: Surgical Code(s): Z95.1 - Presence of aortocoronary bypass graft - Assessment and plan all Dx Assessment and Plan for all problems:: 81-year-old male with obstructing mass in his bladder. Urology consulted. Patient n.p.o. this morning for planned procedure. Will attempt to get stent past obstruction to allow for resolution of hydronephrosis. Continue pain control as ordered, increased overnight. Hypertensive through the day, will add carvedilol at low-dose to address blood pressure. Monitor closely. Emphysema seems to be stable. Watch pulmonary status closely in hospital. full code - cardiac diet when appropriate
--- NOTE | 2021-06-28 09:46 | P.PN_ITS ---
[facility] Anesthesia Checklist - Structural Data Admitted From: Inpatient Planned Operative Procedure/s: cysto,turbt Consent for Planned Operative Procedure(s) Verified: Yes - Additional verifications Anesthesia Reactions: No Hx Blood Transfusions: No - Airway Assessment C-Spine Mobility Assessed: Yes TMJ Mobility Assessed: Yes Dentition: Dentures-good fit - Neurological Assessment Level of Consciousness: Awake, Alert, Appropriate - Anesthesia Plan Anesthesia Risk discussed: Yes Anesthesia Plan: Verified ASA Class: III Anesthesia Type: General [facility] History I have reviewed the patient's past medical history: Yes Medical History: Reports:: Carotid Stenosis, Chronic Obstructive Pulmonary Disease (COPD), Coronary Artery Disease, Hyperlipidemia, Hypertension Denies:: Cancer, Diabetes Mellitus Type 1, Diabetes Mellitus Type 2, MRSA, Seizures *Have you ever received a pneumonia vaccine?: Yes *Have you received a flu vaccine this season?: Yes Other Medical History: Reports: Arthritis, Hypothyroidism, Thyroid Disease Anesthesia experience/problems:: none Laterality Cases: Right: Arthroscopy Knee, Bilateral: Other Other Surgeries: Yes: No Previous Surgery, Cholecystectomy, Colonoscopy, Coronary Stent, EGD, Open Heart Surgery Amputation: No Fractures: No - *Social History Last grade of school completed: High school graduate Smoking Status: Never smoker Alcohol Intake: never Substance Use Type: denies use *Occupational Status:: retired Housing: house Household Members: spouse *Travel in the last 8 weeks: None Family Hx:: No significant family history
--- NOTE | 2021-06-28 11:00 | HMH.ANESI ---
[facility] Anesthesia Record Part I Intake, IV Amount: 400 Estimated blood loss (mL): 5 Urine output (mL): 0 Blood Pressure: 184/100 SaO2: 93 Pulse Rate: 107 Respiratory Rate: 16 Temperature: 97.4 F Patient is:: Drowsy Stable to PACU at:: 10:56
--- NOTE | 2021-06-28 11:12 | P.OP_ITS ---
Date of procedure: 06/28/21 Pre-op Diagnosis:: Right hydroureteronephrosis/bladder mass Post-op Diagnosis:: Same Procedure performed:: Cystoscopy with right stent placement and transurethral resection of right-sided bladder tumor Surgeon:: Francisco Javier Poole MD ASSEMBLER BONDING:: Other (nahum) Anesthesia: GETA Estimated blood loss (mL): 0 Clinical Note:: Patient is an 81-year-old white male with recent findings of right-sided hydroureteronephrosis due to obstruction at the right ureteral vesicle junction. He was admitted for pain control and presents for urologic management today. Operative findings:: Right-sided bladder wall thickening and papillary findings. There was resistance to passage of the 6 x 26 Jordanian stent. Operative note:: Patient taken to the operating room after informed consent was obtained. He was placed on the operating table in supine position and general anesthesia administered. Sequential compression devices and preoperative antibiotics administered. He was then placed into the dorsal lithotomy position and prepped draped in the standard surgical fashion. The urethra was dilated to 30 Jordanian and then 26 Jordanian resectoscope sheath then passed into the urethra and into the bladder without difficulty. The bladder was examined in a systematic fashion. There was evidence of a bladder mass on the right lateral wall and surprisingly the right ureteral orifice was not involved in the mass. Right ureteral orifice was visible on the trigone and was cannulated with a 5 Jordanian ureteral catheter that passed proximally without resistance. A guidewire was passed through the ureteral catheter and under fluoroscopy the ureteral catheter was removed and a 6 x 26 Jordanian stent was passed over the guidewire with notable resistance and the guidewire removed with a good curl noted proximally and distally. Surprisingly there was not an abundant amount of urine coming from the stent after placement. Cystoscopy also revealed right-sided bladder wall thickening with some papillary change and thickened bladder wall. The cystoscope was removed and our resectoscope sheath passed into the bladder and I resectoscope was used to resect the thickened bladder tissue and papillary tissue from the right side of the bladder. The tumor base was fulgurated and the specimen sent off for diagnosis. The scope removed and a [address] Jordanian three- way catheter passed without difficulty. Gama anchored and continuous bladder irrigation was instituted. There was minimal bleeding however. Patient tolerated procedure well discharged to recovery in stable condition. Condition: stable Disposition: PACU Specimens:: Bladder tumor Complications:: None
--- NOTE | 2021-06-28 19:23 | PC.NURSE ---
1126-detailed report called to JOHNSON Altamirano 1128-pt transported to 2nd floor room 212 via hospital bed with elaina rails up and left in care of JOHNSON Altamirano, family at bedside, vss, pt stable
--- NOTE | 2021-06-28 19:36 | PC.NURSE ---
Patient is non tele and on room air. Patient went to OR for cystoscopy and transuretheral resection. CBI is going to keep lomeli clear. Lomeli Catheter in place. Patient is up with assist times one/standby. No c/o per patient.
[2021-06-29] VITALS: BP 138/44; BP 138/55; PULSE 83; RESP 16; TEMP 36.9; O2SAT 93
[2021-06-29 03:20] VITALS: BP 153/75; PULSE 77; RESP 16; TEMP 37; O2SAT 92
--- NOTE | 2021-06-29 04:21 | PC.NURSE ---
Patient is A&Ox4. Patient has had no complaints this shift. Gama is draining adequately. Patient has appeared to have rested well this shift. No acute changes noted. VSS, call light within reach, will continue to monitor.
[2021-06-29 05:41] VITALS: BMI 32.2
[2021-06-29 06:12] LABS: Chloride 98 mmol/L (98-107); Potassium 4.5 mmoL/L (3.5-5.1); Sodium 136 mmol/L (136-145)
[2021-06-29 06:13] LABS: Basophils % 0.4 % (0.1-2.0); Eosinophils # 0.1 K/mm3 (0.0-0.4); Eosinophils % 0.9 % (0.1-12.0); Hematocrit 43.1 % (42.0-52.0); Hemoglobin 14.1 g/dL (14.1-18.0); Lymphocytes # 2.6 K/mm3 (0.7-4.5); Lymphocytes % 24.9 % (10-50); Mean Corpuscular HGB Conc 32.6 g/dL (31.8-35.4); Mean Corpuscular Volume 104.4 fl (80-94); Mean Platelet Volume 8.1 fl (7.4-10.4); Monocytes % 9.4 % (1.7-9.3); Neutrophils # 6.7 K/mm3 (1.8-7.8); Neutrophils % 64.3 % (37.0-80.0); Platelet Count 241 K/mm3 (142-424); Red Blood Count 4.13 M/mm3 (4.60-6.20); White Blood Count 10.4 K/mm3 (4.8-10.8)
[2021-06-29 06:14] LABS: Blood Urea Nitrogen 14 mg/dl (9-20); Creatinine Clearance Estimated 82 mL/min (50-200); Estimated Glomerular Filt Rate 72 ml/min (>60); GFR (African American) 87 ML/MIN (>60)
[2021-06-29 06:15] LABS: Alanine Aminotransferase 10 U/L (12-78); Albumin/Globulin Ratio 1.4 (1.1-1.8); Alkaline Phosphatase 72 U/L (38-126); Anion Gap 10.5 mEq/L (5-15); Aspartate Amino Transferase 21 U/L (17-59); Bilirubin,Total 0.4 mg/dl (0.2-1.3); Calcium 8.4 mg/dl (8.4-10.2); Carbon Dioxide 32 mmol/L (22.0-30.0); Globulin 2.2 g/dL (1.3-3.2); Glucose 105 mg/dl (74-100); Total Protein,Serum 5.2 g/dl (6.3-8.2)
[2021-06-29 08:00] VITALS: BP 147/72; PULSE 84; RESP 18; TEMP 36.8; O2SAT 92
--- NOTE | 2021-06-29 08:49 | HMH.DCSUM ---
General - General Admission date:: 06/26/21 Discharge date: 06/29/21 HPI HPI: 81-year-old white male, admitted through service call in the ER, who has a history of coronary atherosclerosis, status post CABG, status post cholecystectomy and history of COPD, possibly from secondhand smoke exposure as he is never been a smoker. He over the past couple of weeks has had some increase in abdominal pain and a work-up has revealed evidence of a bladder tumor with left-sided hydronephrosis. He has seen Dr. Poole in consultation and surgery has been planned for July 08 here at [facility]. Unfortunately, over the past 24 to 48 hours his pain became intolerable with vomiting, intractable pain and diminished urine output over the past 48 hours with change in the color of his urine to a dark color and he came to the emergency department. ER evaluation revealed progression of hydronephrosis without clear obstruction and enlargement of the apparent bladder tumor. He was admitted for fluids, IV pain control and urology reevaluation. Hospital Course Hospital Course: Patient was admitted, placed on antibiotics, pain control was achieved with intravenous medications. Urology consult was done and Dr. Poole took patient to the OR yesterday for biopsies and stent placement which was successful, concern is that of fairly invasive bladder cancer. Patient tolerated the procedure well and was kept on continuous bladder irrigation through the night. This morning he feels much better. Creatinine has normalized, blood counts are acceptable. Personally discussed case with Dr. Poole and made rounds with him this morning. Plan will be to discontinue catheter later today, check an x-ray and if Dr. Poole is okay with this we will discharge patient after lunch after has been able to get up and walk around. Verbal instructions and case reviewed with his nurse today. Patient is very excited about being able to go home. Plan will be to place him on Levaquin daily for empiric coverage while the stent is in place as well as tramadol for pain control, this was sent to his pharmacy. Dr. Poole will see him on Thursday in his office and I will see him for hospital recheck on that day as well. Objective Vital signs: Temp Pulse Resp BP Pulse Ox 98.6 F 77 16 153/75 H 92 L 06/29/21 03:20 06/29/21 03:20 06/29/21 03:20 06/29/21 03:20 06/29/21 03:20 no acute distress - *Routine HEENT Exam Head: Present: normocephalic Eye: Present: EOMI, PERRL ENT: Present: mucous membranes moist - *Routine Neck Exam Present: supple - *Routine Respiratory Exam Present: CTA bilaterally - *Routine Cardiovascular Exam Present: RRR - *Routine Abdominal Exam Present: soft, normoactive bowel sounds. Absent: tenderness - *Routine Extremities Exam Absent: cyanosis, clubbing, edema - *Routine Skin Exam Present: warm. Absent: rash - Detailed Eye Exam Eyelids: Bilateral normal inspection Results Labs on day of discharge: Labs from last 24 hours 06/29/21 06/29/21 05:26 05:26 WBC 10.4 RBC 4.13 L Hgb 14.1 Hct 43.1 MCV 104.4 H MCH 34.0 H MCHC 32.6 RDW 13.0 Plt Count 241 MPV 8.1 Neut % (Auto) 64.3 Lymph % (Auto) 24.9 [place] % (Auto) 9.4 H Eos % (Auto) 0.9 Baso % (Auto) 0.4 Neut # (Auto) 6.7 Lymph # (Auto) 2.6 [place] # (Auto) 1.0 Eos # (Auto) 0.1 Baso # (Auto) 0.0 Sodium 136 Potassium 4.5 Chloride 98 Carbon Dioxide 32 H Anion Gap 10.5 BUN 14 Creatinine 1.00 D Estimated Creat Clear 82 Estimated GFR 72 Est GFR ( Amer) 87 D Glucose 105 H Calcium 8.4 Magnesium 2.0 Total Bilirubin 0.4 AST 21 ALT 10 L Alkaline Phosphatase 72 Total Protein 5.2 L Albumin 3.0 L Globulin 2.2 Albumin/Globulin Ratio 1.4 DS: Diagnosis - Discharge Diagnosis (1) COPD (chronic obstructive pulmonary disease) Status: Acute (2) Hydronephrosi
--- NOTE | 2021-06-29 09:54 | XR_ITS ---
PROCEDURE INFORMATION: Exam: XR Abdomen Exam date and time: 06/29/2021 9:54 AM Age: 81 years old Clinical indication: Abdominal pain; Localized; Right; Prior surgery; Surgery date: Post-operative (0-2 days); Surgery type: Stent placement TECHNIQUE: Imaging protocol: XR of the abdomen. Views: Frontal supine view of the abdomen. 1 View. COMPARISON: SD XR KUB 06/28/2021 12:00 AM FINDINGS: Tubes, catheters and devices: Right double-J ureteral stent is in place. The distal pigtail is partially unfurled. Lungs: Lung bases are not imaged. Gastrointestinal tract: Nonobstructive bowel gas pattern. Moderate to large formed stool burden. Bones/joints: Osseous structures are unremarkable. Other findings: No abnormal calcification. IMPRESSION: 1. Right double-J ureteral stent is in place. The distal pigtail is partially unfurled. 2. Nonobstructive bowel gas pattern with moderate to large formed colonic stool burden.
--- NOTE | 2021-06-29 10:38 | P.PN_ITS ---
Internal Medicine - PN: Subj *Date: 06/29/21 *Time: 10:38 Interval history: Patient status post right stent placement and TURBT yesterday. Patient's right flank pain has resolved and is feeling better. His creatinine has improved to 1.0. His white count is within normal limits. His urine color slightly blood- tinged off of CBI this morning. He is still worried days not had a bowel movement for about a week. His abdomen is soft and nondistended. Exam Vital signs and Labs for Last 24 Hours: Temp Pulse Resp BP Pulse Ox 98.2 F 84 18 147/72 H 92 L 06/29/21 08:00 06/29/21 08:00 06/29/21 08:00 06/29/21 08:00 06/29/21 08:00 Laboratory Results - last 24 hr 06/29/21 05:26: WBC 10.4, RBC 4.13 L, Hgb 14.1, Hct 43.1, MCV 104.4 H, MCH 34.0 H, MCHC 32.6, RDW 13.0, Plt Count 241, MPV 8.1, Neut % (Auto) 64.3, Lymph % (Auto) 24.9, [place] % (Auto) 9.4 H, Eos % (Auto) 0.9, Baso % (Auto) 0.4, Neut # (Auto) 6.7, Lymph # (Auto) 2.6, [place] # (Auto) 1.0, Eos # (Auto) 0.1, Baso # (Auto) 0.0 06/29/21 05:26: Sodium 136, Potassium 4.5, Chloride 98, Carbon Dioxide 32 H, Anion Gap 10.5, BUN 14, Creatinine 1.00 D, Estimated Creat Clear 82, Estimated GFR 72, Est GFR ( Amer) 87 D, Glucose 105 H, Calcium 8.4, Magnesium 2.0, Total Bilirubin 0.4, AST 21, ALT 10 L, Alkaline Phosphatase 72, Total Protein 5.2 L, Albumin 3.0 L, Globulin 2.2, Albumin/Globulin Ratio 1.4 I & O for Last 24 hours: Intake & Output 06/26/21 06/27/21 06/28/21 06/29/21 23:59 23:59 23:59 23:59 Intake Total 400 / 400 640 / 640 240 / 240 Output Total 0 / 0 5225 / 5925 1900 / 1900 Balance 400 / 400 -4585 / -5285 -1660 / -1660 Weight 104.508 kg 104.508 kg 102.33 kg 102.149 kg - Constitutional no acute distress - *Routine HEENT Exam Head: Present: normocephalic Eye: Present: EOMI, PERRL ENT: Present: mucous membranes moist - *Routine Neck Exam Present: supple. Absent: lymphadenopathy - *Routine Respiratory Exam Absent: accessory muscle use - *Routine Cardiovascular Exam Absent: JVD - *Routine Abdominal Exam Present: soft, normoactive bowel sounds. Absent: tenderness - *Routine Extremities Exam Absent: cyanosis, clubbing, edema - *Routine Skin Exam Present: warm. Absent: rash - *Routine Neurological Exam Present: alert, oriented X3 Assessment and Plan (1) COPD (chronic obstructive pulmonary disease) Status: Acute Category: Medical Code(s): J44.9 - Chronic obstructive pulmonary disease, unspecified (2) Hydronephrosis Status: Acute Category: Medical Code(s): N13.30 - Unspecified hydronephrosis (3) Hydronephrosis due to obstruction of ureter Status: Acute Category: Medical Code(s): N13.1 - Hydronephrosis with ureteral stricture, not elsewhere classified Postop day 1 status post TURBT and right stent placement. There was a lot of resistance to passage of the stent indicating some degree of extrinsic compression on the right ureter. His flank pain has resolved with placement and his creatinine has improved as well. We will discontinue his Gama catheter today and make sure his stent is in good position afterwards. We will plan on seeing him back in the office later this week for discussion of his pathology. (4) S/P CABG (coronary artery bypass graft) Status: Acute Category: Surgical Code(s): Z95.1 - Presence of aortocoronary bypass graft
--- NOTE | 2021-06-29 11:08 | HMH.ACPN2 ---
Internal Medicine - PN: Subj *Date: 06/29/21 *Time: 11:08 Exam Vital signs and Labs for Last 24 Hours: Temp Pulse Resp BP Pulse Ox 98.2 F 84 18 147/72 H 92 L 06/29/21 08:00 06/29/21 08:00 06/29/21 08:00 06/29/21 08:00 06/29/21 08:00 Laboratory Results - last 24 hr 06/29/21 05:26: WBC 10.4, RBC 4.13 L, Hgb 14.1, Hct 43.1, MCV 104.4 H, MCH 34.0 H, MCHC 32.6, RDW 13.0, Plt Count 241, MPV 8.1, Neut % (Auto) 64.3, Lymph % (Auto) 24.9, [place] % (Auto) 9.4 H, Eos % (Auto) 0.9, Baso % (Auto) 0.4, Neut # (Auto) 6.7, Lymph # (Auto) 2.6, [place] # (Auto) 1.0, Eos # (Auto) 0.1, Baso # (Auto) 0.0 06/29/21 05:26: Sodium 136, Potassium 4.5, Chloride 98, Carbon Dioxide 32 H, Anion Gap 10.5, BUN 14, Creatinine 1.00 D, Estimated Creat Clear 82, Estimated GFR 72, Est GFR ( Amer) 87 D, Glucose 105 H, Calcium 8.4, Magnesium 2.0, Total Bilirubin 0.4, AST 21, ALT 10 L, Alkaline Phosphatase 72, Total Protein 5.2 L, Albumin 3.0 L, Globulin 2.2, Albumin/Globulin Ratio 1.4 I & O for Last 24 hours: Intake & Output 06/26/21 06/27/21 06/28/21 06/29/21 23:59 23:59 23:59 23:59 Intake Total 400 / 400 640 / 640 240 / 240 Output Total 0 / 0 5225 / 5925 1900 / 1900 Balance 400 / 400 -4585 / -5285 -1660 / -1660 Weight 104.508 kg 104.508 kg 102.33 kg 102.149 kg Assessment and Plan (1) COPD (chronic obstructive pulmonary disease) Status: Acute Category: Medical Code(s): J44.9 - Chronic obstructive pulmonary disease, unspecified (2) Hydronephrosis Status: Acute Category: Medical Code(s): N13.30 - Unspecified hydronephrosis (3) Hydronephrosis due to obstruction of ureter Status: Acute Category: Medical Code(s): N13.1 - Hydronephrosis with ureteral stricture, not elsewhere classified (4) S/P CABG (coronary artery bypass graft) Status: Acute Category: Surgical Code(s): Z95.1 - Presence of aortocoronary bypass graft The patient's infection will respond to the chosen ABx?: Yes Is the patient receiving the right drug, dose, and route?: Yes Could a more targeted ABx be ordered?: No
--- NOTE | 2021-06-29 13:55 | HMH.PHAINT ---
DISCHARGE MEDICATION COUNSELING COMPLETE. DISCUSSED THE LEVAQUIN, SIDE EFFECTS, HOW TO TAKE (SEPARATE FROM VITAMINS BY 2-4 HOURS). PATIENT ENDORSED NO QUESTIONS AT THIS TIME.
--- NOTE | 2021-06-29 15:05 | PC.NURSE ---
patient ready for discharge to home today. Gama pulled by Dr. Poole, patient voided, and KUB obtained to check stent placement.
--- NOTE | 2021-07-01 08:52 | HMH.ANESII ---
[facility] Anesthesia Record Part II Discharge Time: 11:26 Destination: Surgical Day Care (OP Surgery) PACU nurse assessment reviewed?: Yes Patient Condition:: Good Anesthesia Complications:: None Swallowing reflex intact?: Yes Cyanosis?: No Blood Pressure: 180/90 Pulse Rate: 103 Temperature: 97.8 F Mental Status: Alert & Oriented Pain level:: 0 Nausea and/or vomitting:: None Intake, IV Amount: 0
[2021-07-01 08:53] VITALS: BP 180/90; PULSE 103; TEMP 36.6
== END 2021-06-29 14:55 | disposition home or self-care (01) ==
LOC: ER 19:19 → 2ND 19:58
PROVIDERS: Internal Medicine Adolescent Medicine; Urology; Admitting Provider Internal Medicine Adolescent Medicine; Emergency Provider Student in an Organized Health Care Education/Training Program; PCP Internal Medicine; Visit Provider Internal Medicine Adolescent Medicine
PROC: 0TJB8ZZ Inspection of Bladder, Via Natural or Artificial Opening Endoscopic (ICD-10-PCS; CPT 52000; principal; 2021-06-28 10:15)
DX: R10.31 Right lower quadrant pain (principal); Z20.822 Contact with and (suspected) exposure to COVID-19; E03.9 Hypothyroidism, unspecified; Z79.899 Other long term (current) drug therapy; I25.10 Atherosclerotic heart disease of native coronary artery without angina pectoris; Z95.1 Presence of aortocoronary bypass graft; N13.1 Hydronephrosis with ureteral stricture, not elsewhere classified; J44.9 Chronic obstructive pulmonary disease, unspecified; Z77.22 Contact with and (suspected) exposure to environmental tobacco smoke (acute) (chronic); N32.9 Bladder disorder, unspecified
CPT/HCPCS: 52204; 52332; 36415; 74018; 80053; 81001; 83735; 85025; 88307; 96367; 96374; 99284; C2617; C9803; G0378; J2405; U0003; U0005

== ENCOUNTER → 2021-07-21 18:21 | Outpatient (CLI) | payer MEDICARE, SELFPAY | PROVIDERS: PCP Internal Medicine; Visit Provider Nurse Practitioner | DX: U07.1 COVID-19 (principal) | CPT/HCPCS: C9803; U0003; U0005 ==

== ENCOUNTER 2021-07-25 07:58 | Outpatient (CLI) | payer MEDICARE, SELFPAY ==
[2021-07-25] VITALS (8 sets, daily range): BP systolic 132–144; BP diastolic 65–75; PULSE 63–73; RESP 16–18; TEMP 36.7–37.2; O2SAT 94–97
== END 2021-07-25 10:30 | disposition home or self-care (01) ==
PROVIDERS: PCP Internal Medicine; Visit Provider Internal Medicine
DX: U07.1 COVID-19 (principal); Z23 Encounter for immunization
CPT/HCPCS: 96365

== ENCOUNTER → 2021-09-20 14:32 | Outpatient (CLI) | payer MEDICARE, SELFPAY ==
[2021-09-20 15:01] LABS: Basophils # 0.1 K/mm3 (0-0.2); Basophils % 0.6 % (0.1-2.0); Eosinophils # 0.1 K/mm3 (0.0-0.4); Eosinophils % 0.7 % (0.1-12.0); Hematocrit 41.4 % (42.0-52.0); Hemoglobin 13.4 g/dL (14.1-18.0); Lymphocytes # 2.5 K/mm3 (0.7-4.5); Lymphocytes % 23.7 % (10-50); Mean Corpuscular HGB Conc 32.2 g/dL (31.8-35.4); Mean Corpuscular Hemoglobin 33.9 pg (27.0-31.2); Mean Corpuscular Volume 105.3 fl (80-94); Monocytes # 0.9 K/mm3 (0.1-1.0); Monocytes % 8.6 % (1.7-9.3); Neutrophils # 6.9 K/mm3 (1.8-7.8); Neutrophils % 66.4 % (37.0-80.0); Platelet Count 274 K/mm3 (142-424); Red Blood Count 3.94 M/mm3 (4.60-6.20); Red Cell Distribution Width 14.1 % (11.5-17.5); White Blood Count 10.4 K/mm3 (4.8-10.8)
[2021-09-20 15:11] LABS: Chloride 99 mmol/L (98-107); Sodium 137 mmol/L (136-145)
[2021-09-20 15:13] LABS: Blood Urea Nitrogen 12 mg/dl (9-20); Estimated Glomerular Filt Rate 72 ml/min (>60); GFR (African American) 87 ML/MIN (>60)
[2021-09-20 15:14] LABS: Alanine Aminotransferase 19 U/L (12-78); Albumin Level 3.8 g/dl (3.5-5.0); Albumin/Globulin Ratio 1.3 (1.1-1.8); Alkaline Phosphatase 83 U/L (38-126); Aspartate Amino Transferase 24 U/L (17-59); Bilirubin,Total 0.5 mg/dl (0.2-1.3); Carbon Dioxide 33 mmol/L (22.0-30.0); Glucose 101 mg/dl (74-100); Total Protein,Serum 6.8 g/dl (6.3-8.2)
--- NOTE | 2021-09-20 16:35 | MR_ITS ---
PROCEDURE INFORMATION: Exam: MR Head Without and With Contrast Exam date and time: 09/20/2021 4:35 PM Age: 81 years old Clinical indication: Pain; Headache; Additional info: Fatigue, weakness when walking. HX bladder cancer. 17ml prohance given. TECHNIQUE: Imaging protocol: MR of the head without and with intravenous contrast. Contrast material: PROHANCE; Contrast volume: 17 ml; Contrast route: IV; COMPARISON: CT HEAD/BRAIN WO CON 10/02/2020 11:31 AM FINDINGS: Brain: No bleed, mass, or shift of structures. Basilar cisterns are normal. Pre-pontine region, suprasellar region, and cerebellar angles are normal. Tiny focus of acute ischemia in the white matter adjacent to the trigone of the left lateral ventricle. Brain is atrophic. Altered/abnormal areas of signal intensity within the periventricular white matter likely the radiographic manifestation of small vessel ischemic disease. Cerebral ventricles: Normal. No ventriculomegaly. Pituitary gland and sella: Sella normal. Bones/joints: Clivus normal. Calvarium is normal marrow signal. Paranasal sinuses: Normal as visualized. No acute sinusitis. Mastoid air cells: Normal as visualized. No mastoid effusion. Orbital cavity: Unremarkable. Soft tissues: Soft tissues are unremarkable Other findings: Diploe is normal. Tectum normal. No abnormal enhancement IMPRESSION: 1. Tiny focus of acute ischemia in the white matter adjacent to the trigone of the left lateral ventricle. 2. Brain is atrophic. 3. Altered/abnormal areas of signal intensity within the periventricular white matter likely the radiographic manifestation of small vessel ischemic disease.
== END ==
PROVIDERS: PCP Internal Medicine; Visit Provider Internal Medicine
DX: R27.0 Ataxia, unspecified
CPT/HCPCS: 36415; 70553; 80053; 85025; A9576

== ENCOUNTER 2021-09-25 14:38 | Emergency (ER) | payer MEDICARE, SELFPAY ==
[2021-09-25 15:02] VITALS: BP 124/79; PULSE 98; RESP 18; TEMP 36.1; O2SAT 97; BMI 27.2
--- NOTE | 2021-09-25 15:06 | ECG_ITS ---
APPROVED REPORT Exam: Resting ECG HR:92 bpm ECG Measurements Heart Rate 92 AXES HI 159 P 25 QRSd 92 QRS 33 QT 324 T 40 QTc 373 Conclusion SINUS RHYTHM NORMAL ECG UNCONFIRMED REPORT Electronically signed by : Sammy Clinton MD 09/25/2021 22:18:20
--- NOTE | 2021-09-25 15:19 | HMH.EDGENADL ---
ED Disposition Clinical Impression: Weakness Fatigue Qualifiers: Fatigue type: other Qualified Code(s): R53.83 - Other fatigue Disposition: Home, Self-Care Condition on Discharge: Fair Referrals: Venkata Baldwin [Primary Care Provider] - - Critical Care Critical Care Time: No Attestation: On , the high probability of a clinically significant, sudden or life threatening deterioration of the following system(s) required my full and direct attention, intervention and personal management. The time I documented below is in addition to time spent performing reported procedures but includes the following listed in this critical care notation. Medical Decision Making - Medical Records Medical records reviewed: Yes: I reviewed the patient's medical records. - Link Inquiry Pt receiving controlled substance: No Vital Signs: 09/25/21 15:02 09/25/21 15:30 09/25/21 16:00 Temperature 97.0 F L Temperature Source Oral Pulse Rate 90 Pulse Rate [Right Brachial] 98 H Respiratory Rate 18 Blood Pressure 145/86 H 147/81 H Blood Pressure [Right Arm] 124/79 Blood Pressure Mean 105 102 Blood Pressure Mean [Right Arm] 94 Blood Pressure Source [Right Arm] Automatic Cuff Blood Pressure Position [Right Arm] Sitting 02 Sat by Pulse Oximetry 97 98 Oxygen Delivery Method Room Air 09/25/21 17:00 Temperature Temperature Source Pulse Rate 87 Pulse Rate [Right Brachial] Respiratory Rate Blood Pressure 132/78 Blood Pressure [Right Arm] Blood Pressure Mean 94 Blood Pressure Mean [Right Arm] Blood Pressure Source [Right Arm] Blood Pressure Position [Right Arm] 02 Sat by Pulse Oximetry 95 Oxygen Delivery Method - Lab Data Lab results reviewed: Yes: I reviewed the patient's lab results. Lab Results 09/25/21 08:33: C-Reactive Protein 1.4 09/25/21 15:00: WBC 8.0, RBC 3.61 L, Hgb 12.7 L, Hct 37.8 L, MCV 104.6 H, MCH 35.0 H, MCHC 33.5, RDW 14.1, Plt Count 304, MPV 8.0, Neut % (Auto) 71.0, Lymph % (Auto) 17.9, [place] % (Auto) 9.6 H, Eos % (Auto) 0.8, Baso % (Auto) 0.7, Neut # (Auto) 5.7, Lymph # (Auto) 1.4, Carolina # (Auto) 0.8, Eos # (Auto) 0.1, Baso # (Auto) 0.1, Total Counted 100, Neutrophils % (Manual) 74, Lymphocytes % (Manual) 17, Monocytes % (Manual) 6, Eosinophils % (Manual) 3, Platelet Estimate Normal, RBC Morphology Normal 09/25/21 15:00: Troponin I < 0.01 09/25/21 15:00: Sodium 134 L, Potassium 4.5, Chloride 100, Carbon Dioxide 29, Anion Gap 9.5, BUN 18, Creatinine 1.00, Estimated Creat Clear 69, Estimated GFR 72, Est GFR ( Amer) 87, Glucose 129 H, Calcium 8.7, Total Bilirubin 0.4, AST 23, ALT 16, Alkaline Phosphatase 74, Total Protein 6.6, Albumin 3.5, Globulin 3.1, Albumin/Globulin Ratio 1.1 09/25/21 15:00: ESR > 140 H 09/25/21 18:48: Troponin I < 0.01 Result diagrams: 09/25/21 15:00 09/25/21 15:00 Orders (Tests/Meds): ED MEDICATIONS Generic Name Dose Route Start Last Admin Trade Name Freq PRN Reason Stop Dose Admin Sodium Chloride 1,000 mls @ 999 mls/hr 09/25/21 18:15 09/25/21 18:06 Sod Chlor 0.9% 1000ml Bag IV 09/25/21 19:15 999 mls/hr .Q1H1M LISA Administration ORDERS Category Date Time Status Troponin I Q3H Lab 09/25/21 21:30 Ordered Urinalysis and Microscopic Stat Lab 09/25/21 15:21 Ordered Urine Culture Stat Micro 09/25/21 15:21 Ordered Medical Decision Narrative: Patient is an 81-year-old male presenting to emergency department chief complaint of weakness, fatigue. Differential diagnosis in the patient includes dehydration, RODRIGUEZ, have low suspicion for acute pathology such as spinal epidural abscess, given patient description of symptoms. Patient does have an elevated ESR but has a nonelevated CRP. Patient did not have a leukocytosis. Patient's recent surgical instrumentation, as well as patient current urine output did not test urine as do not believe this would yield any significant testing which would shed light on a UTI. Finding with patient,
--- NOTE | 2021-09-25 15:21 | XR_ITS ---
FINAL REPORT CLINICAL HISTORY: concern for infection FINDINGS: The heart size is normal. There is evidence of median sternotomy. The mediastinum is normal. There is mild left base atelectasis or scarring. There are no pleural effusions. There is no pneumothorax. There is no osseous abnormality. IMPRESSION: Mild left base atelectasis or scarring. Reviewed, Interpreted and Dictated by Moses Lockhart III, MD Transcribed by Justin Urrutia Authenticated by Moses Lockhart III, MD on 09/25/2021 04:28:08 PM [facility]
[2021-09-25 15:27] LABS: MANUAL DIFFERENTIAL MANUAL DIFFERENTIAL (MANUAL DIFF)
[2021-09-25 15:30] VITALS: BP 145/86; PULSE 90; O2SAT 98
[2021-09-25 15:35] LABS: Basophils # 0.1 K/mm3 (0-0.2); Basophils % 0.7 % (0.1-2.0); Chloride 100 mmol/L (98-107); Eosinophils # 0.1 K/mm3 (0.0-0.4); Eosinophils % 0.8 % (0.1-12.0); Hematocrit 37.8 % (42.0-52.0); Hemoglobin 12.7 g/dL (14.1-18.0); Lymphocytes # 1.4 K/mm3 (0.7-4.5); Lymphocytes % 17.9 % (10-50); Mean Corpuscular HGB Conc 33.5 g/dL (31.8-35.4); Mean Corpuscular Volume 104.6 fl (80-94); Monocytes # 0.8 K/mm3 (0.1-1.0); Monocytes % 9.6 % (1.7-9.3); Neutrophils # 5.7 K/mm3 (1.8-7.8); Platelet Count 304 K/mm3 (142-424); Potassium 4.5 mmoL/L (3.5-5.1); Red Blood Count 3.61 M/mm3 (4.60-6.20); Red Cell Distribution Width 14.1 % (11.5-17.5); Sodium 134 mmol/L (136-145)
[2021-09-25 15:38] LABS: Alanine Aminotransferase 16 U/L (12-78); Albumin Level 3.5 g/dl (3.5-5.0); Albumin/Globulin Ratio 1.1 (1.1-1.8); Alkaline Phosphatase 74 U/L (38-126); Anion Gap 9.5 mEq/L (5-15); Aspartate Amino Transferase 23 U/L (17-59); Bilirubin,Total 0.4 mg/dl (0.2-1.3); Blood Urea Nitrogen 18 mg/dl (9-20); Calcium 8.7 mg/dl (8.4-10.2); Carbon Dioxide 29 mmol/L (22.0-30.0); Creatinine Clearance Estimated 69 mL/min (50-200); Estimated Glomerular Filt Rate 72 ml/min (>60); GFR (African American) 87 ML/MIN (>60); Globulin 3.1 g/dL (1.3-3.2); Glucose 129 mg/dl (74-100); Total Protein,Serum 6.6 g/dl (6.3-8.2)
--- NOTE | 2021-09-25 15:42 | PC.NURSE ---
DR. BEAN AT BEDSIDE.
--- NOTE | 2021-09-25 15:43 | PC.NURSE ---
DAUGHTER, BRAYDON, . STATED WE COULD CALL WITH UPDATES AND QUESTIONS. SHE IS WAITING IN THE CAR.
[2021-09-25 15:52] LABS: Troponin I < 0.01 ng/ml (0.00-0.034)
[2021-09-25 16:00] VITALS: BP 147/81
[2021-09-25 16:01] LABS: Eosinophils % 3 % (0-3); Lymphocytes % 17 % (10-50); Monocytes % 6 % (2-9); Neutrophils % 74 % (42-76); Platelet Estimate Normal; RBC Morphology Normal; Total Cells Counted 100
[2021-09-25 16:15] LABS: C-Reactive Protein 1.4 mg/L (0-4)
[2021-09-25 16:20] LABS: Erythrocyte Sedimentation Rate > 140 mm/hr (0-20)
--- NOTE | 2021-09-25 16:57 | PC.NURSE ---
100ML UOP FROM BAG.
[2021-09-25 17:00] VITALS: BP 132/78; PULSE 87; O2SAT 95
[2021-09-25 19:18] LABS: Troponin I < 0.01 ng/ml (0.00-0.034)
[2021-09-25 19:25] VITALS: BP 132/78; PULSE 87; RESP 20; TEMP 36.8; O2SAT 98
== END 2021-09-25 20:03 | disposition home or self-care (01) ==
PROVIDERS: Emergency Provider Emergency Medicine; PCP Internal Medicine
DX: R53.83 Other fatigue (principal); C67.9 Malignant neoplasm of bladder, unspecified; C68.9 Malignant neoplasm of urinary organ, unspecified; Z86.73 Personal history of transient ischemic attack (TIA), and cerebral infarction without residual deficits; J44.9 Chronic obstructive pulmonary disease, unspecified; I25.10 Atherosclerotic heart disease of native coronary artery without angina pectoris; E03.9 Hypothyroidism, unspecified; E78.5 Hyperlipidemia, unspecified; I10 Essential (primary) hypertension; Z79.899 Other long term (current) drug therapy
CPT/HCPCS: 36415; 71045; 80053; 84484; 85007; 85014; 85018; 85048; 85049; 85651; 86140; 93005; 96365; 99283

== ENCOUNTER → 2021-10-15 14:16 | Outpatient (CLI) | payer MEDICARE, SELFPAY ==
--- NOTE | 2021-10-15 14:33 | CT_ITS ---
FINAL REPORT CLINICAL HISTORY: BLADDER CA dx back in jun 2021 COMPARISON: June 24, 2021 FINDINGS: Axial CT images of the abdomen and pelvis were obtained without intravenous contrast. Coronal reformatted images were also obtained.This study was performed with techniques to keep radiation doses as low as reasonably achievable (ALARA). Individualized dose reduction techniques using automated exposure control or adjustment of mA and/or kV according to the patient's size were employed. Abdomen: The lung bases are clear. There is no evidence of renal stone or hydronephrosis. There are postoperative changes from cholecystectomy. The liver, spleen and pancreas have an unremarkable, unenhanced appearance. Bilateral renal masses are again noted and stable in size. These favor a combination of simple and hyperdense cysts. Moderate right hydronephrosis and hydroureter is again noted. No inflammatory process is identified. There are interval postoperative changes from cystectomy with a presumed right pelvis urinary diversion. Pelvis: The appendix is normal. There is no evidence of ureteral dilation or ureteral stone.No abnormal fluid collection is identified. There are multiple colonic diverticula. No new mass or adenopathy is identified. IMPRESSION: No new mass or adenopathy identified. Stable bilateral renal masses, favor a combination of simple and hyperdense cysts. Moderate right hydronephrosis and hydroureter. Postoperative changes as described. Reviewed, Interpreted and Dictated by Moses Lockhart III, MD Transcribed by Sofya Colin Authenticated by Moses Lockhart III, MD on 10/15/2021 04:13:22 PM [facility]
--- NOTE | 2021-10-15 14:33 | CT_ITS ---
FINAL REPORT TECHNIQUE: Axial images were obtained from the lung apex to the mid abdomen by computed tomography. Coronal reformatted images were obtained. This study was performed with techniques to keep radiation doses as low as reasonably achievable, (ALARA). Individualized dose reduction techniques using automated exposure control or adjustment of mA and/or kV according to the patient''s size were employed. CLINICAL HISTORY: BLADDER CA FINDINGS: There is no axillary adenopathy. There is no hilar or mediastinal adenopathy. Heart size is normal. There are postoperative changes from median sternotomy. There is no pericardial or pleural effusion. Limited images of the upper abdomen are unremarkable. On the lung window images there is mild bibasilar atelectasis or scarring. There is mild bronchiectasis in the left lower lobe. There are several calcified granulomas. There is a 2 mm nodule anterior right lung base on image 49 which is nonspecific. IMPRESSION: Mild bibasilar atelectasis or scarring. Mild bronchiectasis in the left lower lobe. 2 mm nodule right lung base, nonspecific. Suggest follow-up CT in 6 months. Reviewed, Interpreted and Dictated by Moses Lockhart III, MD Transcribed by Sofya Colin Authenticated by Moses Lockhart III, MD on 10/15/2021 04:13:18 PM [facility]
== END ==
PROVIDERS: PCP Internal Medicine; Visit Provider Internal Medicine Medical Oncology
DX: C68.9 Malignant neoplasm of urinary organ, unspecified (principal)
CPT/HCPCS: 71250; 74176

== ENCOUNTER → 2021-10-21 15:11 | Outpatient (CLI) | payer MEDICARE, SELFPAY | PROVIDERS: PCP Internal Medicine; Visit Provider Nurse Practitioner | DX: Z20.822 Contact with and (suspected) exposure to COVID-19 (principal) | CPT/HCPCS: C9803; U0003; U0005 ==

== ENCOUNTER 2021-10-23 12:58 | Outpatient (CLI) | payer MEDICARE, SELFPAY ==
[2021-10-23 13:13] VITALS: BMI 27.6
[2021-10-23 13:54] LABS: Basophils % 0.3 % (0.1-2.0); Eosinophils # 0.1 K/mm3 (0.0-0.4); Eosinophils % 0.5 % (0.1-12.0); Hematocrit 34.8 % (42.0-52.0); Hemoglobin 11.4 g/dL (14.1-18.0); Lymphocytes # 1.6 K/mm3 (0.7-4.5); Lymphocytes % 12.1 % (10-50); Mean Corpuscular HGB Conc 32.7 g/dL (31.8-35.4); Mean Corpuscular Hemoglobin 32.3 pg (27.0-31.2); Mean Corpuscular Volume 98.8 fl (80-94); Mean Platelet Volume 6.9 fl (7.4-10.4); Monocytes # 0.7 K/mm3 (0.1-1.0); Monocytes % 5.3 % (1.7-9.3); Neutrophils # 10.9 K/mm3 (1.8-7.8); Neutrophils % 81.7 % (37.0-80.0); Platelet Count 497 K/mm3 (142-424); Red Blood Count 3.52 M/mm3 (4.60-6.20); Red Cell Distribution Width 12.8 % (11.5-17.5); White Blood Count 13.3 K/mm3 (4.8-10.8)
[2021-10-23 13:57] LABS: Chloride 98 mmol/L (98-107); Potassium 4.2 mmoL/L (3.5-5.1); Sodium 130 mmol/L (136-145)
[2021-10-23 14:00] LABS: Alanine Aminotransferase 66 U/L (12-78); Albumin Level 3.4 g/dl (3.5-5.0); Albumin/Globulin Ratio 0.9 (1.1-1.8); Alkaline Phosphatase 103 U/L (38-126); Anion Gap 7.2 mEq/L (5-15); Aspartate Amino Transferase 41 U/L (17-59); Bilirubin,Total 0.4 mg/dl (0.2-1.3); Blood Urea Nitrogen 30 mg/dl (9-20); Carbon Dioxide 29 mmol/L (22.0-30.0); Creatinine Clearance Estimated 54 mL/min (50-200); Estimated Glomerular Filt Rate 53 ml/min (>60); GFR (African American) 64 ML/MIN (>60); Globulin 3.6 g/dL (1.3-3.2)
[2021-10-23 14:01] LABS: Calcium 8.5 mg/dl (8.4-10.2); Glucose 153 mg/dl (74-100)
[2021-10-23 14:27] VITALS: BP 153/69; PULSE 86; RESP 18; O2SAT 97
[2021-10-23 14:31] LABS: Thyroid Stimulating Hormone 3.33 uIU/mL (0.465-4.68)
[2021-10-23 14:42] VITALS: BP 143/68; PULSE 80; RESP 16
[2021-10-23 14:57] VITALS: BP 137/69; PULSE 79; RESP 16
[2021-10-23 15:12] VITALS: BP 143/70; PULSE 77; RESP 16
[2021-10-23 15:30] VITALS: BP 153/69; PULSE 76; RESP 16
--- NOTE | 2021-10-24 12:31 | DIET.NUTRFU ---
RD consulted secondary to chemo tx. He has bladder cancer and undergoing outpatient tx. He reports 30# weight loss since July 2021. Denies any N/V at time of call, has been eating 3-4 meals/day with some snacks throughout. Also drinking 2 boosts/day to help meet caloric needs. Lives with who prepares meals. He did c/o constipation, reviewed hydration needs. he has some medication in place for constipation. Provided contact information for further concerns
== END 2021-10-23 15:50 | disposition home or self-care (01) ==
LOC: INF 13:00
PROVIDERS: PCP Internal Medicine; Visit Provider Internal Medicine Medical Oncology
DX: C67.9 Malignant neoplasm of bladder, unspecified (principal); Z79.899 Other long term (current) drug therapy
CPT/HCPCS: 80053; 82533; 84443; 85025; 96413; J9299

== ENCOUNTER → 2021-10-26 12:24 | Outpatient (CLI) | payer MEDICARE, SELFPAY | PROVIDERS: Visit Provider Nurse Practitioner | DX: Z20.822 Contact with and (suspected) exposure to COVID-19 (principal) | CPT/HCPCS: C9803; U0003; U0005 ==

== ENCOUNTER 2021-10-28 10:12 | Outpatient (CLI) | payer MEDICARE, SELFPAY ==
[2021-10-28 10:12] VITALS: BMI 27.3
[2021-10-28 10:34] VITALS: BP 118/59; PULSE 85; RESP 18; TEMP 36.6; O2SAT 97
[2021-10-28 10:45] VITALS: BP 124/70; PULSE 80; RESP 20
--- NOTE | 2021-10-28 10:46 | XR_ITS ---
FINAL REPORT TECHNIQUE: Single view chest CLINICAL HISTORY: COUGH AND SHORTNESS OF BREATH, BLADDER CANCER COMPARISON: 09/25/2021 FINDINGS: A single view of the chest was obtained. The heart and mediastinum are within normal limits. The lungs are underinflated but clear. There is no pneumothorax. Osseous structures are unremarkable. IMPRESSION: No acute cardiopulmonary process. Reviewed, Interpreted and Dictated by Lazarus Alvarez MD Transcribed by Gail Brock Authenticated by Lazarus Alvarez MD on 10/28/2021 01:15:14 PM [facility]
[2021-10-28 11:02] LABS: Alanine Aminotransferase 41 U/L (12-78); Albumin Level 3.4 g/dl (3.5-5.0); Albumin/Globulin Ratio 1.1 (1.1-1.8); Alkaline Phosphatase 78 U/L (38-126); Anion Gap 11.2 mEq/L (5-15); Aspartate Amino Transferase 31 U/L (17-59); Bilirubin,Total 0.5 mg/dl (0.2-1.3); Blood Urea Nitrogen 33 mg/dl (9-20); Calcium 8.5 mg/dl (8.4-10.2); Carbon Dioxide 26 mmol/L (22.0-30.0); Chloride 101 mmol/L (98-107); Creatinine Clearance Estimated 50 mL/min (50-200); Estimated Glomerular Filt Rate 49 ml/min (>60); GFR (African American) 59 ML/MIN (>60); Globulin 3.2 g/dL (1.3-3.2); Glucose 187 mg/dl (74-100); Potassium 4.2 mmoL/L (3.5-5.1); Sodium 134 mmol/L (136-145); Total Protein,Serum 6.6 g/dl (6.3-8.2)
[2021-10-28 11:06] LABS: Basophils # 0.1 K/mm3 (0-0.2); Basophils % 0.4 % (0.1-2.0); Eosinophils # 0.1 K/mm3 (0.0-0.4); Eosinophils % 0.9 % (0.1-12.0); Hematocrit 34.4 % (42.0-52.0); Hemoglobin 11.4 g/dL (14.1-18.0); Lymphocytes # 1.4 K/mm3 (0.7-4.5); Lymphocytes % 10.7 % (10-50); Mean Corpuscular Hemoglobin 32.6 pg (27.0-31.2); Mean Corpuscular Volume 98.7 fl (80-94); Mean Platelet Volume 7.1 fl (7.4-10.4); Monocytes # 0.5 K/mm3 (0.1-1.0); Monocytes % 3.6 % (1.7-9.3); Neutrophils # 11.2 K/mm3 (1.8-7.8); Neutrophils % 84.5 % (37.0-80.0); Platelet Count 401 K/mm3 (142-424); Red Blood Count 3.48 M/mm3 (4.60-6.20); White Blood Count 13.2 K/mm3 (4.8-10.8)
[2021-10-28 11:35] VITALS: BP 134/58; PULSE 84; RESP 20; TEMP 36.9; O2SAT 95
== END 2021-10-28 11:35 | disposition home or self-care (01) ==
LOC: INF 10:13
PROVIDERS: PCP Internal Medicine; Visit Provider Internal Medicine Medical Oncology
DX: C68.9 Malignant neoplasm of urinary organ, unspecified (principal)
CPT/HCPCS: 71045; 80053; 85025; 96360; 96375; J2405

== ENCOUNTER 2021-10-30 10:11 | Outpatient (CLI) | payer MEDICARE, SELFPAY ==
[2021-10-30 10:18] VITALS: BMI 27.3
[2021-10-30 10:39] LABS: Basophils # 0.1 K/mm3 (0-0.2); Basophils % 0.3 % (0.1-2.0); Eosinophils % 0.1 % (0.1-12.0); Hematocrit 35.3 % (42.0-52.0); Hemoglobin 11.5 g/dL (14.1-18.0); Lymphocytes # 1.3 K/mm3 (0.7-4.5); Lymphocytes % 6.3 % (10-50); Mean Corpuscular HGB Conc 32.4 g/dL (31.8-35.4); Mean Corpuscular Hemoglobin 32.5 pg (27.0-31.2); Mean Corpuscular Volume 100.1 fl (80-94); Mean Platelet Volume 7.7 fl (7.4-10.4); Monocytes # 0.9 K/mm3 (0.1-1.0); Monocytes % 4.5 % (1.7-9.3); Neutrophils # 18.1 K/mm3 (1.8-7.8); Neutrophils % 88.8 % (37.0-80.0); Platelet Count 436 K/mm3 (142-424); Red Blood Count 3.53 M/mm3 (4.60-6.20); Red Cell Distribution Width 13.7 % (11.5-17.5); White Blood Count 20.4 K/mm3 (4.8-10.8)
[2021-10-30 10:50] LABS: Chloride 98 mmol/L (98-107); Potassium 4.3 mmoL/L (3.5-5.1); Sodium 128 mmol/L (136-145)
[2021-10-30 10:52] LABS: Alanine Aminotransferase 35 U/L (12-78); Aspartate Amino Transferase 26 U/L (17-59); Blood Urea Nitrogen 39 mg/dl (9-20); Creatinine Clearance Estimated 44 mL/min (50-200); Estimated Glomerular Filt Rate 42 ml/min (>60); GFR (African American) 50 ML/MIN (>60)
[2021-10-30 10:53] LABS: Albumin Level 3.2 g/dl (3.5-5.0); Albumin/Globulin Ratio 0.9 (1.1-1.8); Alkaline Phosphatase 76 U/L (38-126); Anion Gap 8.3 mEq/L (5-15); Bilirubin,Total 0.3 mg/dl (0.2-1.3); Calcium 8.2 mg/dl (8.4-10.2); Carbon Dioxide 26 mmol/L (22.0-30.0); Globulin 3.4 g/dL (1.3-3.2); Glucose 157 mg/dl (74-100); Total Protein,Serum 6.6 g/dl (6.3-8.2)
[2021-10-30 11:25] LABS: MANUAL DIFFERENTIAL MANUAL DIFFERENTIAL (MANUAL DIFF)
[2021-10-30 11:28] VITALS: BP 147/83; PULSE 86; RESP 18; O2SAT 97
[2021-10-30 12:30] LABS: Lymphocytes % 5 % (10-50); Monocytes % 6 % (2-9); Neutrophils % 89 % (42-76); Total Cells Counted 100
[2021-10-30 12:31] LABS: Macrocytosis 1+; Platelet Estimate Normal
[2021-10-30 12:40] VITALS: BP 159/67; PULSE 86; RESP 18
== END 2021-10-30 12:40 | disposition home or self-care (01) ==
LOC: INF 10:12
PROVIDERS: PCP Internal Medicine; Visit Provider Internal Medicine Medical Oncology
DX: R53.1 Weakness (principal); C67.9 Malignant neoplasm of bladder, unspecified
CPT/HCPCS: 80053; 85007; 85025; 96360; 96375; J2405

== ENCOUNTER 2021-11-04 11:45 | Outpatient (CLI) | payer MEDICARE, SELFPAY ==
[2021-11-04 11:59] VITALS: BMI 26.2
[2021-11-04 12:15] LABS: Basophils % 0.2 % (0.1-2.0); Eosinophils % 0.2 % (0.1-12.0); Hematocrit 34.8 % (42.0-52.0); Hemoglobin 11.1 g/dL (14.1-18.0); Lymphocytes # 1.6 K/mm3 (0.7-4.5); Lymphocytes % 9.3 % (10-50); Mean Platelet Volume 7.7 fl (7.4-10.4); Monocytes # 0.8 K/mm3 (0.1-1.0); Monocytes % 4.9 % (1.7-9.3); Neutrophils # 14.4 K/mm3 (1.8-7.8); Neutrophils % 85.4 % (37.0-80.0); Platelet Count 438 K/mm3 (142-424); Red Blood Count 3.48 M/mm3 (4.60-6.20); Red Cell Distribution Width 13.7 % (11.5-17.5); White Blood Count 16.8 K/mm3 (4.8-10.8)
[2021-11-04 12:18] LABS: MANUAL DIFFERENTIAL MANUAL DIFFERENTIAL (MANUAL DIFF)
[2021-11-04 12:20] LABS: Alanine Aminotransferase 71 U/L (12-78); Albumin Level 3.1 g/dl (3.5-5.0); Albumin/Globulin Ratio 0.9 (1.1-1.8); Alkaline Phosphatase 107 U/L (38-126); Anion Gap 12.4 mEq/L (5-15); Aspartate Amino Transferase 54 U/L (17-59); Bilirubin,Total 0.3 mg/dl (0.2-1.3); Blood Urea Nitrogen 39 mg/dl (9-20); Calcium 8.4 mg/dl (8.4-10.2); Carbon Dioxide 26 mmol/L (22.0-30.0); Chloride 97 mmol/L (98-107); Creatinine Clearance Estimated 39 mL/min (50-200); Estimated Glomerular Filt Rate 39 ml/min (>60); GFR (African American) 47 ML/MIN (>60); Globulin 3.3 g/dL (1.3-3.2); Glucose 219 mg/dl (74-100); Potassium 4.4 mmoL/L (3.5-5.1); Sodium 131 mmol/L (136-145); Total Protein,Serum 6.4 g/dl (6.3-8.2)
--- NOTE | 2021-11-04 12:53 | PC.NURSE ---
PT ESCORTED TO ONCOLOGY PER JOHNSON CARSON. PT TO BE RETURNED. AWAITING ORDERS.
[2021-11-04 12:54] LABS: Lymphocytes % 12 % (10-50); Macrocytosis 1+; Monocytes % 3 % (2-9); Neutrophils % 84 % (42-76); Platelet Estimate Normal; Total Cells Counted 100
== END 2021-11-04 12:00 | disposition still patient (30) ==
LOC: INF 11:47
PROVIDERS: PCP Internal Medicine; Visit Provider Internal Medicine Medical Oncology
DX: R10.9 Unspecified abdominal pain (principal)
CPT/HCPCS: 80053; 85007; 85025

== ENCOUNTER 2021-11-04 13:23 | Emergency (ER) | payer MEDICARE, SELFPAY ==
[2021-11-04] VITALS (7 sets, daily range): BP systolic 126–142; BP diastolic 61–76; PULSE 73–80; RESP 16–20; TEMP 36.4; O2SAT 95–98; BMI 26.2
--- NOTE | 2021-11-04 13:46 | PC.NURSE ---
JOHN DE LA TORRE at
--- NOTE | 2021-11-04 13:52 | CT_ITS ---
FINAL REPORT CLINICAL HISTORY: abd pain, constipation, complains of pain in rectum and lower abd COMPARISON: October 15, 2021 FINDINGS: CT OF THE ABDOMEN AND PELVIS WITH CONTRAST Axial CT images of the abdomen and pelvis were obtained after the administration of IV contrast. Coronal reformatted images were also obtained and reviewed.This study was performed with techniques to keep radiation doses as low as reasonably achievable (ALARA). Individualized dose reduction techniques using automated exposure control or adjustment of mA and/or kV according to the patient's size were employed. Abdomen: There is mild bibasilar atelectasis or pneumonia.. The heart is normal in size. The liver has an unremarkable appearance, without evidence of mass or biliary ductal dilatation. The gallbladder surgically absent. The spleen is unremarkable. No adrenal mass is present. The pancreas has an unremarkable appearance. Again noted are bilateral renal masses which are stable in size and appearance and likely represent a combination of simple and complicated cysts. There is persistent right hydronephrosis and hydroureter. There is diminished contrast enhancement of the right kidney. There is a 3.9 cm abdominal aortic aneurysm with a chronic dissection which is stable. There are multiple enlarged retroperitoneal lymph nodes. Para-aortic lymph node measures 1.8 cm, stable. There is a 2 cm lower para-aortic lymph node that was previously 1.6 cm. These may be reactive or neoplastic. There is a small amount of ascites with mild retroperitoneal edema. Pelvis: The appendix is not well-visualized. There are postoperative changes from cystectomy and urinary diversion. There is a large amount of retained stool in the distal colon and rectum which is worrisome for constipation/fecal impaction. IMPRESSION: Slight worsening of retroperitoneal adenopathy, reactive or neoplastic. Findings worrisome for constipation/fecal impaction, worse. Moderate right hydronephrosis and hydroureter, stable. Stable renal masses. Stable aortic dissection. Reviewed, Interpreted and Dictated by Moses Lockhart III, MD Transcribed by Sofya Colin Authenticated by Moses Lockhart III, MD on 11/04/2021 03:25:28 PM [facility]
--- NOTE | 2021-11-04 13:53 | PC.NURSE ---
notified rad of CT order, spoke with Antonio
--- NOTE | 2021-11-04 14:00 | PC.NURSE ---
pt to CT
--- NOTE | 2021-11-04 14:07 | HMH.EDABDPAI ---
ED Disposition Clinical Impression: Constipation Disposition: Home, Self-Care Condition on Discharge: Good Instructions: Constipation, DI for Lymphadenopathy Additional Instructions: Please use the aggressive bowel regiment as prescribed. Please continue to drink plenty of water. Please return to the ED for any concerning symptoms such as inability to have bowel movement in 2 days, worsening abdominal distension or pain or any other concerns. Please also discuss with your cancer doctors regarding adenopathy found on CT scan. Prescriptions: Magnesium Hydroxide [Milk of Magnesia 30mL Udc] 30 ml PO Q8HP PRN #1 applic PRN Reason: Constipation Transmission Status: Received by [facility] Sennosides/Docusate Sodium [Docusate Sodium-Senna Tablet] 1 each PO BIDP PRN #30 tab PRN Reason: Constipation Transmission Status: Received by [facility] Referrals: Venkata Baldwin [Primary Care Provider] - - Critical Care Critical Care Time: No Attestation: On 11/04/21, the high probability of a clinically significant, sudden or life threatening deterioration of the following system(s) required my full and direct attention, intervention and personal management. The time I documented below is in addition to time spent performing reported procedures but includes the following listed in this critical care notation. Medical Decision Making - Medical Records Medical records reviewed: Yes: I reviewed the patient's medical records. - Link Inquiry Pt receiving controlled substance: No Vital Signs: 11/04/21 13:25 11/04/21 14:30 11/04/21 15:00 Temperature 97.6 F Temperature Source Oral Pulse Rate 78 80 Pulse Rate [Right Radial] 80 Respiratory Rate 16 16 18 Blood Pressure 126/61 139/68 Blood Pressure [Right Arm] 142/76 H Blood Pressure Mean 84 91 Blood Pressure Mean [Right Arm] 98 Blood Pressure Source [Right Arm] Automatic Cuff Blood Pressure Position [Right Arm] Sitting 02 Sat by Pulse Oximetry 97 97 95 Oxygen Delivery Method Room Air Room Air 11/04/21 15:30 11/04/21 16:00 11/04/21 16:30 Temperature Temperature Source Pulse Rate 75 75 73 Pulse Rate [Right Radial] Respiratory Rate 18 18 18 Blood Pressure 133/68 141/68 H 140/68 Blood Pressure [Right Arm] Blood Pressure Mean 94 92 100 Blood Pressure Mean [Right Arm] Blood Pressure Source [Right Arm] Blood Pressure Position [Right Arm] 02 Sat by Pulse Oximetry 98 95 97 Oxygen Delivery Method 02/28/22 17:16 Temperature 97.6 F Temperature Source Pulse Rate 78 Pulse Rate [Right Radial] Respiratory Rate 20 Blood Pressure 139/66 Blood Pressure [Right Arm] Blood Pressure Mean Blood Pressure Mean [Right Arm] Blood Pressure Source [Right Arm] Blood Pressure Position [Right Arm] 02 Sat by Pulse Oximetry Oxygen Delivery Method Room Air - Lab Data Lab results reviewed: Yes: I reviewed the patient's lab results. Orders (Tests/Meds): ED MEDICATIONS Discontinued Medications Generic Name Dose Route Start Last Admin Trade Name Freq PRN Reason Stop Dose Admin Lactated Ringer's 500 mls @ 999 mls/hr 11/04/21 16:30 Lactated Ringer's 1000 Ml Bag IV 11/04/21 17:00 .Q31M LISA Sodium Chloride 1,000 mls @ 500 mls/hr 11/04/21 16:30 Sod Chlor 0.9% 1000ml Bag IV 12/04/21 16:29 .Q2H LISA Sodium Chloride 500 mls @ 999 mls/hr 11/04/21 16:30 11/04/21 16:31 Sod Chlor 0.9% 1000ml Bag IV 11/04/21 17:00 999 mls/hr .Q31M LISA Administration Iopamidol 75 ml 11/04/21 14:13 11/04/21 14:14 Iopamidol-370 (76%);100ml Bottle IV 11/04/21 14:14 75 ml ONCE ONE Administration Sodium Chloride 10 ml 11/04/21 14:13 11/04/21 14:14 Sodium Chloride 0.9% 10ml Syr (Rad Only) IV 11/04/21 14:14 10 ml ONCE ONE Administration Medical Decision Narrative: Mr. Antoine is a 81 yo male presenting with abdominal pain and constipation for 6d. Patient is afebrile and hemodynamically stable on
--- NOTE | 2021-11-04 14:13 | PC.NURSE ---
pt return from CT
== END 2021-11-04 17:20 | disposition home or self-care (01) ==
PROVIDERS: Emergency Provider Student in an Organized Health Care Education/Training Program; PCP Internal Medicine
DX: K59.00 Constipation, unspecified (principal); C67.9 Malignant neoplasm of bladder, unspecified; J44.9 Chronic obstructive pulmonary disease, unspecified; I10 Essential (primary) hypertension; I25.10 Atherosclerotic heart disease of native coronary artery without angina pectoris; E03.9 Hypothyroidism, unspecified; E78.5 Hyperlipidemia, unspecified; Z79.899 Other long term (current) drug therapy
CPT/HCPCS: 74177; 80053; 85007; 85025; 96365; 99284; Q9967

== ENCOUNTER 2021-11-07 12:12 | Outpatient (CLI) | payer MEDICARE, SELFPAY ==
[2021-11-07 12:13] VITALS: BMI 26.4
[2021-11-07 12:25] VITALS: BP 143/60; PULSE 91; RESP 18; TEMP 36.1; O2SAT 96
[2021-11-07 12:29] LABS: Basophils # 0.1 K/mm3 (0-0.2); Basophils % 0.3 % (0.1-2.0); Eosinophils % 0.2 % (0.1-12.0); Hematocrit 32.7 % (42.0-52.0); Lymphocytes # 1.2 K/mm3 (0.7-4.5); Lymphocytes % 8.3 % (10-50); Mean Corpuscular HGB Conc 30.5 g/dL (31.8-35.4); Mean Corpuscular Hemoglobin 30.9 pg (27.0-31.2); Mean Corpuscular Volume 101.6 fl (80-94); Mean Platelet Volume 8.4 fl (7.4-10.4); Monocytes # 0.6 K/mm3 (0.1-1.0); Monocytes % 3.7 % (1.7-9.3); Neutrophils # 12.8 K/mm3 (1.8-7.8); Neutrophils % 87.5 % (37.0-80.0); Platelet Count 380 K/mm3 (142-424); Red Blood Count 3.22 M/mm3 (4.60-6.20); Red Cell Distribution Width 13.9 % (11.5-17.5); White Blood Count 14.6 K/mm3 (4.8-10.8)
[2021-11-07 12:34] LABS: Chloride 93 mmol/L (98-107); MANUAL DIFFERENTIAL MANUAL DIFFERENTIAL (MANUAL DIFF); Potassium 4.4 mmoL/L (3.5-5.1); Sodium 125 mmol/L (136-145)
[2021-11-07 12:36] LABS: Alanine Aminotransferase 61 U/L (12-78); Alkaline Phosphatase 98 U/L (38-126); Aspartate Amino Transferase 43 U/L (17-59); Bilirubin,Total 0.3 mg/dl (0.2-1.3); Blood Urea Nitrogen 43 mg/dl (9-20); Creatinine Clearance Estimated 37 mL/min (50-200); Estimated Glomerular Filt Rate 36 ml/min (>60); GFR (African American) 44 ML/MIN (>60)
[2021-11-07 12:37] LABS: Albumin Level 2.9 g/dl (3.5-5.0); Albumin/Globulin Ratio 0.9 (1.1-1.8); Anion Gap 9.4 mEq/L (5-15); Calcium 7.5 mg/dl (8.4-10.2); Carbon Dioxide 27 mmol/L (22.0-30.0); Globulin 3.1 g/dL (1.3-3.2); Glucose 209 mg/dl (74-100)
[2021-11-07 13:45] VITALS: BP 151/76; PULSE 87; RESP 18
[2021-11-07 14:24] LABS: Lymphocytes % 12 % (10-50); Monocytes % 3 % (2-9); Neutrophils % 85 % (42-76); Platelet Estimate Normal; RBC Morphology Normal; Total Cells Counted 100
== END 2021-11-07 13:45 | disposition home or self-care (01) ==
LOC: INF 12:13
PROVIDERS: Visit Provider Internal Medicine Medical Oncology
DX: C67.9 Malignant neoplasm of bladder, unspecified (principal); E86.0 Dehydration
CPT/HCPCS: 80053; 85007; 85025; 96360

== ENCOUNTER 2021-11-15 09:34 | Outpatient (CLI) | payer MEDICARE, SELFPAY ==
[2021-11-15 10:00] VITALS: BP 118/68; PULSE 86; RESP 20; TEMP 36.9; O2SAT 95
[2021-11-15 11:00] VITALS: BP 120/74; PULSE 88; RESP 20; TEMP 36.9; O2SAT 95
== END 2021-11-15 11:30 | disposition home or self-care (01) ==
LOC: INF 09:34
PROVIDERS: PCP Internal Medicine; Visit Provider Internal Medicine Medical Oncology
DX: C67.9 Malignant neoplasm of bladder, unspecified (principal); E86.0 Dehydration
CPT/HCPCS: 96360

== ENCOUNTER 2021-11-20 13:36 | Outpatient (CLI) | payer MEDICARE, SELFPAY ==
[2021-11-20 13:49] VITALS: BMI 26.4
[2021-11-20 14:05] VITALS: BP 138/64; PULSE 72; RESP 18; TEMP 36.3; O2SAT 98
[2021-11-20 14:16] LABS: Chloride 97 mmol/L (98-107); Sodium 130 mmol/L (136-145)
[2021-11-20 14:17] LABS: Potassium 4.7 mmoL/L (3.5-5.1)
[2021-11-20 14:18] LABS: Basophils % 0.1 % (0.1-2.0); Eosinophils % 0.1 % (0.1-12.0); Hematocrit 31.8 % (42.0-52.0); Hemoglobin 10.2 g/dL (14.1-18.0); Lymphocytes # 1.1 K/mm3 (0.7-4.5); Lymphocytes % 7.4 % (10-50); Mean Corpuscular HGB Conc 32.2 g/dL (31.8-35.4); Mean Corpuscular Hemoglobin 31.3 pg (27.0-31.2); Mean Corpuscular Volume 97.2 fl (80-94); Mean Platelet Volume 7.8 fl (7.4-10.4); Monocytes # 0.8 K/mm3 (0.1-1.0); Monocytes % 5.2 % (1.7-9.3); Neutrophils # 13.2 K/mm3 (1.8-7.8); Neutrophils % 87.2 % (37.0-80.0); Platelet Count 326 K/mm3 (142-424); Red Blood Count 3.27 M/mm3 (4.60-6.20); Red Cell Distribution Width 14.3 % (11.5-17.5); White Blood Count 15.2 K/mm3 (4.8-10.8)
[2021-11-20 14:19] LABS: Alanine Aminotransferase 25 U/L (12-78); Albumin/Globulin Ratio 0.9 (1.1-1.8); Alkaline Phosphatase 81 U/L (38-126); Anion Gap 8.7 mEq/L (5-15); Aspartate Amino Transferase 20 U/L (17-59); Bilirubin,Total 0.3 mg/dl (0.2-1.3); Blood Urea Nitrogen 44 mg/dl (9-20); Carbon Dioxide 29 mmol/L (22.0-30.0); Creatinine Clearance Estimated 34 mL/min (50-200); Estimated Glomerular Filt Rate 32 ml/min (>60); GFR (African American) 39 ML/MIN (>60); Globulin 3.2 g/dL (1.3-3.2); Total Protein,Serum 6.2 g/dl (6.3-8.2)
[2021-11-20 14:20] LABS: Calcium 8.2 mg/dl (8.4-10.2); Glucose 154 mg/dl (74-100)
[2021-11-20 14:27] LABS: MANUAL DIFFERENTIAL MANUAL DIFFERENTIAL (MANUAL DIFF)
[2021-11-20 14:51] LABS: Thyroid Stimulating Hormone 2.73 uIU/mL (0.465-4.68)
[2021-11-20 15:06] VITALS: BP 150/68; PULSE 74; RESP 18; O2SAT 99
[2021-11-20 15:13] LABS: Lymphocytes % 4 % (10-50); Monocytes % 2 % (2-9); Neutrophils % 94 % (42-76); Platelet Estimate Normal; Total Cells Counted 100
== END 2021-11-20 15:06 | disposition home or self-care (01) ==
LOC: INF 13:37
PROVIDERS: PCP Internal Medicine; Visit Provider Internal Medicine
DX: C67.9 Malignant neoplasm of bladder, unspecified (principal); E03.9 Hypothyroidism, unspecified; E87.1 Hypo-osmolality and hyponatremia; R94.4 Abnormal results of kidney function studies; R53.83 Other fatigue
CPT/HCPCS: 80053; 84443; 85007; 85025; 96360

== ENCOUNTER → 2021-11-29 14:27 | Outpatient (CLI) | payer MEDICARE, SELFPAY ==
[2021-11-29 15:32] LABS: Basophils % 0.2 % (0.1-2.0); Eosinophils % 0.2 % (0.1-12.0); Hematocrit 34.5 % (42.0-52.0); Hemoglobin 10.7 g/dL (14.1-18.0); Lymphocytes # 1.3 K/mm3 (0.7-4.5); Lymphocytes % 7.2 % (10-50); Mean Corpuscular HGB Conc 31.2 g/dL (31.8-35.4); Mean Corpuscular Hemoglobin 30.9 pg (27.0-31.2); Monocytes # 0.7 K/mm3 (0.1-1.0); Neutrophils # 15.3 K/mm3 (1.8-7.8); Neutrophils % 88.5 % (37.0-80.0); Platelet Count 356 K/mm3 (142-424); Red Blood Count 3.48 M/mm3 (4.60-6.20); Red Cell Distribution Width 14.6 % (11.5-17.5); White Blood Count 17.2 K/mm3 (4.8-10.8)
[2021-11-29 15:38] LABS: MANUAL DIFFERENTIAL MANUAL DIFFERENTIAL (MANUAL DIFF)
[2021-11-29 17:08] LABS: Chloride 93 mmol/L (98-107); Potassium 5.4 mmoL/L (3.5-5.1); Sodium 126 mmol/L (136-145)
[2021-11-29 17:10] LABS: Blood Urea Nitrogen 67 mg/dl (9-20); Estimated Glomerular Filt Rate 20 ml/min (>60); GFR (African American) 24 ML/MIN (>60)
[2021-11-29 17:11] LABS: Alanine Aminotransferase 26 U/L (12-78); Albumin Level 2.7 g/dl (3.5-5.0); Albumin/Globulin Ratio 0.9 (1.1-1.8); Alkaline Phosphatase 86 U/L (38-126); Anion Gap 11.4 mEq/L (5-15); Aspartate Amino Transferase 25 U/L (17-59); Bilirubin,Total 0.3 mg/dl (0.2-1.3); Calcium 8.1 mg/dl (8.4-10.2); Carbon Dioxide 27 mmol/L (22.0-30.0); Globulin 2.9 g/dL (1.3-3.2); Glucose 150 mg/dl (74-100); Total Protein,Serum 5.6 g/dl (6.3-8.2)
[2021-11-29 17:44] LABS: Thyroid Stimulating Hormone 2.59 uIU/mL (0.465-4.68)
[2021-11-29 18:25] LABS: Folate > 20.00 ng/mL
[2021-11-29 18:55] LABS: Hypochromasia 1+; Lymphocytes % 5 % (10-50); Macrocytosis 1+; Neutrophils % 89 % (42-76); Platelet Estimate Normal; Total Cells Counted 100
[2021-11-29 19:24] LABS: Vitamin B12 751 pg/mL (239-931)
== END ==
PROVIDERS: Visit Provider Specialist
DX: D64.9 Anemia, unspecified (principal); C68.9 Malignant neoplasm of urinary organ, unspecified; R73.9 Hyperglycemia, unspecified; I25.10 Atherosclerotic heart disease of native coronary artery without angina pectoris
CPT/HCPCS: 36415; 80053; 82607; 82746; 84443; 85007; 85025

== ENCOUNTER → 2021-12-03 14:49 | Outpatient (CLI) | payer MEDICARE, SELFPAY ==
--- NOTE | 2021-12-03 14:56 | CT_ITS ---
FINAL REPORT CLINICAL HISTORY: AUG. KIDNEY FUNCTION/MALIGNANT NEOPLASM OF BLADDER COMPARISON: 11/04/2021 FINDINGS: Technique: Axial images through the abdomen and pelvis were performed by computed tomography. This study was performed with techniques to keep radiation doses as low as reasonably achievable (ALARA). Individualized dose reduction techniques using automated exposure control or adjustment of mA and/or kV according to the patient's size were employed. Abdomen: There is mild bibasilar atelectasis with small left effusion. The liver is normal in size and attenuation. The patient is status post cholecystectomy. The spleen is unremarkable. The pancreas is normal. The adrenals are normal. There is a 3.8 cm abdominal aortic aneurysm with stable chronic aortic dissection. Bilateral renal masses are again identified, some likely represent cysts. There is a mass in the anterior right kidney measuring 14 mm, favor hyperdense cyst. There is moderate to severe right and moderate left hydronephrosis and hydroureter, somewhat worse than previous. Again identified is retroperitoneal adenopathy. A para-aortic node at L2 measures 20 mm, previously measured 17 mm. A para-aortic node at L4 measures 23 mm, previously measured 19 mm. Findings are worrisome for metastatic adenopathy. Pelvis: The appendix is not identified. The patient is status post cystectomy and prostatectomy with urinary diversion. There is no free fluid or adenopathy. IMPRESSION: Worsening hydronephrosis and hydroureter. Worsening retroperitoneal adenopathy consistent with worsening metastatic adenopathy. Other findings are stable. Reviewed, Interpreted and Dictated by Moses Lockhart III, MD Transcribed by Winsome Miller Authenticated by Moses Lockhart III, MD on 12/04/2021 08:45:01 AM [facility]
[2021-12-03 18:45] LABS: Chloride 94 mmol/L (98-107)
[2021-12-03 18:46] LABS: Potassium 5.9 mmoL/L (3.5-5.1); Sodium 127 mmol/L (136-145)
[2021-12-03 18:49] LABS: Anion Gap 13.9 mEq/L (5-15); Blood Urea Nitrogen 69 mg/dl (9-20); Calcium 7.7 mg/dl (8.4-10.2); Carbon Dioxide 25 mmol/L (22.0-30.0); Estimated Glomerular Filt Rate 14 ml/min (>60); GFR (African American) 17 ML/MIN (>60); Glucose 132 mg/dl (74-100)
[2021-12-03 18:56] LABS: Creatine Kinase < 20 U/L (55-170)
[2021-12-05 10:21] LABS: Sodium, Urine 36 mmol/L (Not Estab.)
[2021-12-06 09:14] LABS: Osmolality, Urine 252 mOsmol/kg (.)
== END ==
PROVIDERS: PCP Internal Medicine; Visit Provider Internal Medicine
DX: C67.9 Malignant neoplasm of bladder, unspecified (principal); N28.9 Disorder of kidney and ureter, unspecified
CPT/HCPCS: 74176; 80048; 82550; 83930; 83935; 84300

== ENCOUNTER 2021-12-26 09:41 | Outpatient (CLI) | payer MEDICARE, SELFPAY ==
[2021-12-26] VITALS (19 sets, daily range): BP systolic 104–132; BP diastolic 42–62; PULSE 55–67; RESP 14–17; TEMP 36–36.3; O2SAT 93–96; BMI 26.6
[2021-12-26 10:37] LABS: Hematocrit 22.5 % (42.0-52.0)
[2021-12-26 16:32] LABS: Hematocrit 28.2 % (42.0-52.0)
== END 2021-12-26 16:56 | disposition home or self-care (01) ==
LOC: INF 09:42
PROVIDERS: PCP Internal Medicine; Visit Provider Family Medicine
DX: D64.9 Anemia, unspecified (principal)
CPT/HCPCS: 36430; 85014; 85018; 86850; P9016